=== PATIENT | female | born 1985 | race Caucasian/White ===

== ENCOUNTER 2017-01-16 08:44 | Inpatient (IN) | payer BC, OTHER ==
[~2017-01-16] VITALS: Ht 172.7 cm; Wt 66.2 kg
[2017-01-16 00:30] VITALS: BP 112/77
[2017-01-16 02:55] VITALS: BP 127/70
[2017-01-16] MEDS ORDERED: ACETAMINOPHEN 325 MG TABLET PO PRN (19:00)
[2017-01-16] MEDS ORDERED: LORAZEPAM 2 MG/1 ML VIAL IM PRN (19:00)
[2017-01-16] MEDS ORDERED: ONDANSETRON ODT 4 MG TAB.RAPDIS SL PRN (19:00)
[2017-01-16] MEDS ORDERED: LOPERAMIDE HCL 2 MG CAPSULE PO PRN ×2 (19:00)
[2017-01-16] MEDS ORDERED: MAG HYDROX/AL HYDROX/SIMETH 30 ML LIQUID UDC PO PRN (19:00)
[2017-01-16] MEDS ORDERED: MAGNESIUM HYDROXIDE 30 ML LIQUID UDC PO PRN (19:00)
[2017-01-16] MEDS ORDERED: BUPRENORPHINE HCL 2 MG TAB.SUBL SL PRN (19:00)
[2017-01-16] MEDS ORDERED: ONDANSETRON 4 MG/2 ML VIAL IM PRN (19:00)
[2017-01-16] MEDS ORDERED: LORAZEPAM 1 MG TABLET PO PRN (19:00)
[2017-01-16] MEDS ORDERED: MIRALAX 17 GM POWD.PACK PO PRN (19:00)
[2017-01-16 19:20] VITALS: BP 114/68
--- NOTE | 2017-01-16 19:20 | NUR ---
Pre-Assessment Pre-assessment performed in the intake department of [facility]. Pt is A&O x4 and ambulatory with a steady gait. She appears mildly intoxicated. She is cooperative and answers all questions appropriately but takes a few seconds before answering. Vitals: B/P 114/68, HR 77, RR 18, O2 sat 100%, T 98.0, pain 0/10. She has NKA. Pt reports she has been using heroin IV and Xanax. Assessment to continue on the [facility].
[2017-01-16 19:48] LABS: BASOPHILS % (AUTO) 0.4 % (0.0-2.0); EOSINOPHILS # (AUTO) 0.1 K/uL (0.0-0.7); HEMATOCRIT 40.9 % (37-47); HEMOGLOBIN 13.2 G/DL (12.0-16.0); LYMPHOCYTES # (AUTO) 2.1 K/UL (0.8-4.8); LYMPHOCYTES % (AUTO) 41.6 % (20.5-51.5); MEAN CORPUSCULAR HEMOGLOBIN 28.1 UUG (27.0-31.0); MEAN CORPUSCULAR HGB CONC 32 g/dL (32.0-37.0); MEAN CORPUSCULAR VOLUME 86.8 FL (81.0-99.0); MONOCYTES # (AUTO) 0.3 K/UL (0.1-1.30); MONOCYTES % (AUTO) 5.4 % (0.0-11.0); NEUTROPHILS # (AUTO) 2.6 K/UL (1.8-8.9); NEUTROPHILS % (AUTO) 51.6 % (38.5-71.5); PLATELET COUNT (AUTO) 161 K/UL (150-450); RED BLOOD CELL COUNT(AUTO) 4.71 MIL/UL (4.2-5.4); WHITE BLOOD COUNT (AUTO) 5.1 K/UL (4.0-11.2)
[2017-01-16 19:57] LABS: ALANINE AMINOTRANSFERASE 89 U/L (14-59); ALKALINE PHOSPHATASE 80 U/L (50-136); ASPARTATE AMINOTRANSFERASE 57 U/L (15-37); BILIRUBIN,TOTAL 0.6 mg/dL (0.2-1.0); CARBON DIOXIDE 29 mmol/L (21-32); CHLORIDE 102 mmol/L (98-107); CREATININE 0.7 mg/dL (0.6-1.3); GLUCOSE 76 mg/dL (74-106); MAGNESIUM 1.8 mg/dL (1.8-2.4); POTASSIUM 3.5 mmol/L (3.5-5.1); TOTAL PROTEIN, SERUM 7.4 g/dL (6.4-8.2); UREA NITROGEN, BLOOD 12 mg/dL (7-18)
[2017-01-16 20:00] VITALS: BP 114/68
[2017-01-16 20:07] LABS: THYROID STIMULATING HORMONE 0.188 mIU/mL (0.358-3.740)
[2017-01-16 20:12] LABS: *URINE HCG, QUAL NEGATIVE (NEGATIVE)
[2017-01-16 20:14] LABS: ETHANOL < 3 MG/DL (0-0)
[2017-01-16 20:16] LABS: *AMPHETAMINE, URINE NEGATIVE (NEGATIVE); *BARBITURATE, URINE NEGATIVE (NEGATIVE); *CANNABINOID, URINE POSITIVE (NEGATIVE); *COCCAINE, URINE POSITIVE (NEGATIVE); *OPIATE, URINE POSITIVE (NEGATIVE); *PHENCYCLIDINE SCREEN,URINE NEGATIVE (NEGATIVE)
[2017-01-16] MEDS ORDERED: LORAZEPAM 1 MG TABLET PO SCH (21:00)
--- NOTE | 2017-01-16 21:30 | NUR ---
ADMISSION Pt is a 31 yo female who arrived [facility] the [facility] unit at 1935 on 01/16/17 for medically supervised detox. She is A&O x4 and ambulatory. Body check performed by APPLICATION DEVELOPER MANAGER and skin check performed by nurse. Pt was oriented to the unit and shown to her room. She is A&O x4 and ambulatory with a steady gait. NKA, full code status, and on a regular diet. Vitals signs: 114/68, HR 77, RR 18, O2 sat 100%, T 98.0, pain 0/10. Pt is 5'8" and weighs 146lb. She has a PMH of HPV, genital herpes, anxiety, depression, bipolar, and h/o eating disorder. Lung sounds clear, PERRLA, brisk capillary refills, bowel sounds present, skin is intact. She reports last menstrual period was 2 months ago and it is irregular due to using drugs. Last BM was today. History of Use 1) Xanax 1-3mg per day for the past 9 months. Last used 1mg on 01/16/17 at 1100. She has used Xanax for 14 years. She also admits to occasional Valium use. Last used 10mg this evening on the car ride from [facility] to [facility]. 2) Heroin IV 1 gram per day for the past 4 months. Last used 0.4 grams on 01/16/17 at 1100. She has used heroin for the past 14 years. 3)Cocaine 0.5grams 1x/month. Last used 0.5 grams 01/14/17. She has used cocaine for 9 years. 4)Marijuana 0.5grams 3x/month. Last used 0.5 grams 01/15/17. She has used marijuana for 9 years. Treatment History 1)[facility] 03/2015 for 4.5 months. 2)[facility] 02/2014 for 4.5 months. Pt smokes 1 pack of cigarettes per day. She decided to come to treatment today "to get sober". Her longest period of sobriety was one year from 03/2015 to 03/2016. Symptoms when she doesn't use include "stuffy nose, hot and cold, irritable". Pt does not have a primary care physician at home. COWS 2 and CIWA 2 on admission. Admission orders received. Pt was educated regarding use of the call light and all questions answered. Fall precautions in place. Bed is down with call light in reach.
[2017-01-17] VITALS (8 sets, daily range): BP systolic 105–136; BP diastolic 66–101
--- NOTE | 2017-01-17 01:26 | NUR ---
PRN Subutex Pt reports hot and cold flashes, sweating, skin crawling. She has moist skin, nasal stuffiness, and goose bumps. COWS score 12. PRN Subutex administered.
--- NOTE | 2017-01-17 02:26 | NUR ---
PRN Subutex reassessment Pt reports Subutex only mildly effective. She continues to have hot and cold flashes with moist skin and goose bumps. Nasal stuffiness is relieved. COWS score reduced to 9.
[2017-01-17] MEDS: CLONIDINE HCL 0.1 MG TABLET PO PRN (02:58)
[2017-01-17] MEDS: LORAZEPAM 1 MG TABLET PO PRN ×2 (02:59→05:47)
[2017-01-17] MEDS: METHOCARBAMOL 750 MG TABLET PO PRN ×2 (02:59→21:38)
[2017-01-17] MEDS: DICYCLOMINE HCL 20 MG TABLET PO PRN ×2 (02:59→13:16)
--- NOTE | 2017-01-17 03:00 | NUR ---
PRN Ativan, Clonidine, Robaxin, and Bentyl Pt states "I feel so hot and my stomach is in knots. I'm sweating even more". She is constantly moving in bed and moaning in discomfort. COWS score 14 and CIWA 13. PRN Ativan, Clonidine, Robaxin, and Bentyl administered.
--- NOTE | 2017-01-17 04:00 | NUR ---
PRN Ativan, Clonidine, Robaxin, and Bentyl reassessment PRN Ativan, Clonidine, Robaxin, and Bentyl effective. Pt reports "I feel much better". COWS 4 and CIWA 3.
[2017-01-17] MEDS: IBUPROFEN 600 MG TABLET PO PRN (05:47)
--- NOTE | 2017-01-17 05:51 | NUR ---
PRN Ativan and Motrin Pt woke up and reports chills, sweating, body aches, stomach cramps. She is anxious, irritable, and shifting in bed. COWS 8 and CIWA 7. PRN Ativan and Motrin administered.
[2017-01-17] MEDS ORDERED: GABA-534 PO (06:40)
[2017-01-17] MEDS ORDERED: DIME25TA2 PO (06:40)
[2017-01-17] MEDS ORDERED: LAMO200T PO (06:40)
[2017-01-17] MEDS ORDERED: BUSP30TA2 PO ×2 (06:40→21:31)
[2017-01-17] MEDS ORDERED: VALA500T34 PO (06:40)
[2017-01-17] MEDS ORDERED: LAMO100T PO (06:40)
--- NOTE | 2017-01-17 06:50 | NUR ---
PRN Ativan and Motrin PRN Ativan and Motrin effective. Pt is less anxious, restless, and body aches are relieved. COWS 5 and CIWA 2.
--- NOTE | 2017-01-17 07:25 | NUR ---
END OF SHIFT Pt is a 31 yo female admitted to [facility] 01/16/17 at 1935. She is A&O and ambulatory. She was admitted to BZD and Opiate dependence with a h/o using cocaine and marijuana. PRN Subutex, Clonidine, Robaxin, Bentyl, Motrin, and Ativan x2 administered. She drank 500mL and slept for 5 hours. Last COWS 5 and CIWA 2. Safety measures in place.
--- NOTE | 2017-01-17 07:50 | NUR ---
START OF SHIFT Received report from night nurse. 31 year old female patient admitted on 01/16/17 for opiate and benzo withdrawals. Pt reports history of HPV, genital herpes, depression, anxiety and bipolar. Denies allergies, full code and regular diet. Pt is currently not on a taper and is on PRN medications. Pt received PRN Clonidine, Robaxin, Bentyl, Subutex, Motrin and Ativan x2 for withdrawal symptoms. Pt states medications were effective. COWS were 8 and now 4, CIWA was 7 and now 2. V/S remain WNL. Pt remain safe throughout shift, and is resting in bed at this time. Safety precautions are in place, will continue to monitor.
[2017-01-17] MEDS: MULTIVITAMINS,THERAPEUTIC TABLET PO SCH (08:55)
[2017-01-17] MEDS: LORAZEPAM 1 MG TABLET PO SCH ×4 (08:56→21:38)
[2017-01-17] MEDS: BUPRENORPHINE HCL 2 MG TAB.SUBL SL SCH ×4 (08:56→21:39)
[2017-01-17] MEDS ORDERED: TUBERCULIN,PURIF.PROT.DERIV. 5 TU/0.1 ML TEST ID ONE (09:00)
--- NOTE | 2017-01-17 09:15 | NUR ---
REFUSING TB TEST Pt is refusing PPD test at this time. Education provided. Pt does not present with a cough, lungs are clear at this time. aware.
[2017-01-17] MEDS: GABAPENTIN 300 MG CAPSULE PO SCH ×2 (13:15→17:36)
--- NOTE | 2017-01-17 13:26 | NUR ---
PRN BENTYL Pt c/o 5/10 stomach cramps. PRN Bentyl administered as ordered. Will reassess.
--- NOTE | 2017-01-17 14:30 | NUR ---
REASSESSMENT Pt denies cramps at this time. Medication was effective.
--- NOTE | 2017-01-17 18:53 | NUR ---
END OF SHIFT 31 year old female patient admitted on 01/16/17 for opiate and benzo withdrawals. Pt was started on a 5 day Ativan and 5 day Subutex taper and is tolerating well. Pt reports history of HPV, genital herpes, depression, anxiety and bipolar. Denies allergies, full code and regular diet. Pt received PRN Bentyl and states it was effective. COWS were 7 and CIWA 7. V/S remain WNL with bouts of increased heart rate, no distress noted. Pt remains compliant with therapeutic care plan. Safety precautions are in place, business excellence manager nurse will continue to monitor.
--- NOTE | 2017-01-17 19:50 | NUR ---
START OF SHIFT 315 Received report from day shift nurse. Pt is lying in bed watching TV. She is a 31 yo female admitted to [facility] for opiate and BZD dependence. She is A&O and ambulatory. NKA, full code, regular diet. She has a PMH of HPV, genital herpes, depression, anxiety, and bipolar. On admission she reported using xanax 1-3mg per day, heroin IV 1 gram per day, cocaine, and marijuana. She started 5 day Ativan and Subutex tapers today. Pt reports chills, anxiety, and muscle aches. She is noted with moist skin and nasal stuffiness. Tapers due tonight. Fall precautions in place. Bed is down with call light in reach.
--- NOTE | 2017-01-17 21:39 | NUR ---
PRN Robaxin Pt reports generalized body aches. PRN Robaxin administered.
--- NOTE | 2017-01-17 22:39 | NUR ---
PRN Robaxin reassessment PRN Robaxin effective. Pt reports body aches are relieved.
[2017-01-18] VITALS: BP 119/73
[2017-01-18 04:00] VITALS: BP 106/67
--- NOTE | 2017-01-18 07:15 | NUR ---
END OF SHIFT Report provided to day shift nurse. Pt is lying in bed resting. She is a 31 yo female admitted to [facility] for opiate and BZD dependence. She is A&O. NKA, full code, regular diet. She has a PMH of HPV, genital herpes, depression, anxiety, and bipolar. On admission she reported using xanax 1-3mg per day, heroin IV 1 gram per day, cocaine, and marijuana. 5 day Ativan and Subutex tapers started 01/17/17. PRN Robaxin administered. Pt is cooperative with treatment. Last COWS 4 and CIWA 3. She drank 1000mL and slept for 7 hours. Fall precautions in place. Bed is down with call light in reach.
--- NOTE | 2017-01-18 07:42 | NUR ---
BEGINNING OF SHIFT Patient endorsement report received from night warehouse manager nurse, all pertinent information discussed. Patient is a 31 year old female, NKA. Admitted on 01/16/2017. Admitting Dx: Opiate/BZO dependence. Patient with ongoing 5 day Ativan taper and 5 day Subutex taper as ordered currently with ongoing day 2 of taper. Patient slept for 7 hours as per night warehouse manager. Also with last and ciwa score of: 3, and last cow score of: 4. . During night warehouse manager patient received PRN:Robaxin, medication effective as per night warehouse manager. Received patient alert and oriented x4, Educated regarding plan of care for the day and medication regimen with good verbal understanding. Safety measures in place. call light kept with in reach, fall and seizure precautions observed. Will continue to monitor closely.
[2017-01-18 08:44] VITALS: BP 110/70
[2017-01-18] MEDS: MULTIVITAMINS,THERAPEUTIC TABLET PO SCH (08:45)
[2017-01-18] MEDS: GABAPENTIN 300 MG CAPSULE PO SCH (08:46)
[2017-01-18] MEDS: VALACYCLOVIR 500 MG PO SCH (08:46)
[2017-01-18] MEDS: BUPRENORPHINE HCL 2 MG TAB.SUBL SL SCH ×3 (08:46→20:50)
[2017-01-18] MEDS: LORAZEPAM 1 MG TABLET PO SCH ×3 (08:46→20:49)
[2017-01-18] MEDS: METHOCARBAMOL 750 MG TABLET PO PRN (08:55)
[2017-01-18] MEDS: DICYCLOMINE HCL 20 MG TABLET PO PRN (08:55)
--- NOTE | 2017-01-18 08:55 | NUR ---
PRN BENTYL/ROBAXIN Patient c/o stomach cramps and muscle aches, provided with non pharmacological interventions with no relief, administered Bentyl and Robaxin as ordered, will monitor effectiveness, encouraged patient to increase PO fluid intake as tolerated.
--- NOTE | 2017-01-18 09:55 | NUR ---
BENTYL/ROBAXIN REASSESSMENT Patient reports medication effective, no c/o stomach cramps and no c/o muscle aches, will continue to monitor.
[2017-01-18 11:10] LABS: HEPATITIS B SURFACE AG Negative (Negative)
[2017-01-18 12:58] VITALS: BP 126/90
[2017-01-18] MEDS: GABAPENTIN 400 MG CAPSULE PO SCH ×2 (14:29→20:49)
[2017-01-18 17:19] VITALS: BP 121/88
[2017-01-18] MEDS: busPIRone 10 MG TABLET PO SCH (18:38)
--- NOTE | 2017-01-18 18:59 | NUR ---
END OF SHIFT Patient alert and oriented x4, vital signs stable during shift. Patient compliant with therapeutic plan of care. Admitting Dx: opiate/BZO dependence, Patient continues on 5 day Ativan taper and 5 day Subutex taper as ordered is currently on day 2 of tapers. 0900 assessment patient presented with: heart rate of 87, c/o chills, dilated pupils, mild bone and joint aches, stomach cramps, tremors that can be felt but not seen, irritable, barely sweating and anxiety with cow score of: 8 and ciwa score of: 6; 1300 assessment patient presented with: heart rate of 95, c/o chills, dilated pupils, tremors that can be felt but not seen, irritable, anxiety and barely sweating with cow score of: 6 and ciwa score of: 6. 1700 assessment patient presented with: heart rate of 98, c/o chills, dilated pupils, tremors that can be felt but not seen, irritable, anxiety and barely sweating with cow score of: 6 and ciwa score of: 6. During shift administered PRN: Bentyl and Robaxin as ordered, medications were effective.Patient encouraged to attend group/therapy sessions to learn new coping skills to prevent relapse, denies SI/HI. Patient compliant with plan of care during shift. Safety measures in place. call light kept with in reach. Patient endorsement report given to hourly shift nurse, all pertinent information discussed. safety measures in place. will continue to monitor.
--- NOTE | 2017-01-18 19:10 | NUR ---
Start of Shift Patient Received. Patient is a 31 year old female admitted on 01/16/17 for Benzo and Opiate Dependence under the care of Dr. Webb. Patient is currently receiving a a 5 day Ativan and 5 day Subutex taper. Patient verbalizes no known allergies, wishes to be full code, following a Regular Diet, placed on fall precautions, with skin noted intact. Past medical history noted as HPV, Genital herpes, Depression, Anxiety, and Bipolar. Per endorsement, patient was given PRN Bentyl and Robaxin with medications noted to be effective. Last CIWA noted to be 6 and noted COWS noted to be CIWA 6. All needs attended to promptly. Will continue plan of care as ordered.
[2017-01-18 20:47] VITALS: BP 124/78
[2017-01-18] MEDS: LAMOTRIGINE 200 MG TABLET PO SCH (20:49)
[2017-01-19] VITALS: BP 109/74
[2017-01-19] MEDS: diphenhydrAMINE 50 MG CAPSULE PO PRN ×2 (00:12→22:01)
--- NOTE | 2017-01-19 00:15 | NUR ---
PRN Medication administration Patient verbalizing inability of falling asleep. All non pharmacological interventions noted to be not effective. PRN Benadryl administered as per order. Will continue to monitor.
--- NOTE | 2017-01-19 01:15 | NUR ---
PRN Medication Reassessment Patient is noted in bed sleeping. Breathing even and non labored. No signs of pain or discomfort noted. PRN Benadryl noted to be effective. patient continues to sleep with no interruptions noted. Will continue to monitor.
[2017-01-19 04:30] VITALS: BP 105/71
--- NOTE | 2017-01-19 07:13 | NUR ---
End of Shift Patient is in bed sleeping. Breathing even and non labored. No signs of pain or discomfort noted. Patient is a 31 year old female admitted on 01/16/17 for Benzo and Opiate Dependence. Patient continues on a 5 day Ativan and 5 day Subutex taper. No known allergies, wishes to be full code, following a Regular Diet, placed on fall precautions, with skin noted intact. Past medical history noted as HPV, Genital herpes, Depression, Anxiety, and Bipolar. Patient was given PRN Benadryl with medication noted to be effective. All needs attended to promptly. Will continue plan of care as ordered.
--- NOTE | 2017-01-19 07:25 | NUR ---
Start of Shift Chimney Builder Helper received pt from herb digger nurse. Pt is a 31 year old female admitted on 01/16/17 for Xanax and Heroin medical detoxification. Pt currently on a 5 day Subutex and 5 day Ativan taper ,tolerating well. Pt has NKA, is a full code and on a regular diet. Pt placed on fall and universal precautions. Pt reports a PMH of depression, anxiety, Bipolar, HPV and genital herpes. Skin is intact. Pts last COWS of 6 and CIWA of 6 recorded at 2130. Chimney Builder Helper encounters pt in her room sitting on her bed. Pt is calm and cooperative and able to make her needs known. Flat affect with depressed mood. Bed in low position, wheels locked, side rails x2 and call light within reach. All safety measures in place per hospital policy. Will continue to monitor, support and encourage according to plan of care.
[2017-01-19 08:26] VITALS: BP 120/76
[2017-01-19] MEDS ORDERED: BUPRENORPHINE HCL 2 MG TAB.SUBL SL SCH (09:00)
[2017-01-19] MEDS: LORAZEPAM 1 MG TABLET PO SCH ×4 (09:02→21:03)
[2017-01-19] MEDS: busPIRone 10 MG TABLET PO SCH ×2 (09:02→16:15)
[2017-01-19] MEDS: GABAPENTIN 400 MG CAPSULE PO SCH ×3 (09:02→21:03)
[2017-01-19] MEDS: MULTIVITAMINS,THERAPEUTIC TABLET PO SCH (09:02)
[2017-01-19] MEDS: LAMOTRIGINE 100 MG TABLET PO SCH (09:02)
[2017-01-19] MEDS: VALACYCLOVIR 500 MG PO SCH (09:14)
[2017-01-19 12:30] VITALS: BP 110/74
[2017-01-19] MEDS: METHOCARBAMOL 750 MG TABLET PO PRN (13:11)
--- NOTE | 2017-01-19 13:11 | NUR ---
PRN Administration Pt requests medication for generalized body aches and discomfort. Pt attempted non-pharmacological intereventions with no relief noted. Cement Paver administered Robaxin per MD order and pt tolerated well. Will continue to moniotr, support and encourage according to plan of care.
--- NOTE | 2017-01-19 14:15 | NUR ---
PRN Re-assessment Pt states she feels moderately better, stating, " I feel a bit better, still achy, but tolerable." Will continue to monitor, support and encourage according to plan of care.
--- NOTE | 2017-01-19 15:42 | NUR ---
Therapist prompted client to attend daily group sessions, and client stated that she would make an effort to attend the next group meeting.
[2017-01-19] MEDS: BUPRENORPHINE HCL 2 MG TAB.SUBL SL SCH ×2 (15:54→21:04)
[2017-01-19] MEDS: IBUPROFEN 600 MG TABLET PO PRN (16:15)
--- NOTE | 2017-01-19 16:15 | NUR ---
PRN Administration Pt requests medication for headache 12/01, attempted non-pharmacological interventions with no relief. Matcher Leather Parts administered medication as ordered by MD. Will continue to monitor, support and encourage according to plan of care.
[2017-01-19 16:45] VITALS: BP 112/77
--- NOTE | 2017-01-19 17:15 | NUR ---
PRN Re-assessment Pt states, " I am feeling better, the Motrin helped, thanks." Will continue to monitor, support and encourage according to plan of care.
--- NOTE | 2017-01-19 19:05 | NUR ---
End of Shift Sales Merchandiser provided report to nightclub manager nurse with no further, comments, questions or concerns voiced. . Pt is a 31 year old female admitted on 01/16/17 for Xanax and Heroin medical detoxification. Pt currently on a 5 day Subutex and 5 day Ativan taper ,tolerating well. Pt has NKA, is a full code and on a regular diet. Pt placed on fall and universal precautions. Pt reports a PMH of depression, anxiety, Bipolar, HPV and genital herpes. Skin is intact. Pts last COWS of 4 and CIWA of 5 recorded at 1600. Pt is calm and cooperative and able to make her needs known. Social and attending groups. Flat affect with depressed mood. Pt was administered Robaxin for muscle aches and generalized pain. Also administered Motrin for headache, both reported to be effective.Bed in low position, wheels locked, side rails x2 and call light within reach. All safety measures in place per hospital policy.
--- NOTE | 2017-01-19 19:10 | NUR ---
Start of Shift Patient Received. Patient is in activities room participating in group meeting. Patient is a 31 year old female admitted on 01/16/17 for Benzo and Opiate Dependence under the care of Dr. Webb. Patient continues on a 5 day Ativan and 5 day Subutex taper. No known allergies, wishes to be full code, following a Regular Diet, placed on fall precautions, with skin noted intact. Past medical history reported as Depression, Anxiety, and Bipolar, HPV, Genital herpes. Per endorsement, patient was given PRN Motrin and Robaxin with medications noted to be effective. Last COWS noted 4 and CIWA 5. All needs attended to promptly. Will continue plan of care as ordered.
[2017-01-19 20:11] VITALS: BP 113/79
[2017-01-19] MEDS: LAMOTRIGINE 200 MG TABLET PO SCH (21:03)
--- NOTE | 2017-01-19 22:02 | NUR ---
PRN Medication Administration Patient is verbalizing inability of falling asleep. All non-pharmacological interventions noted not effective. PRN Benadryl administered. Will continue to monitor for effectiveness of medication.
--- NOTE | 2017-01-19 23:17 | NUR ---
PRN Medication Reassessment Patient noted in bed sleeping. Breathing even and non labored. No signs of pain or discomfort noted. Patient was given PRN Benadryl with medication noted to be effective. Patient noted to be sleeping with no interruptions noted. Will continue to monitor.
[2017-01-20] VITALS (7 sets, daily range): BP systolic 108–118; BP diastolic 69–84
--- NOTE | 2017-01-20 07:30 | NUR ---
start of shift note: received pt from shift supervisor melting nurse, pt is in stable condition at this time. pt is [facility] for opiate/benzo withdrawal /dependence. pt's last cows 2 and ciwa 2. will continue to monitor pt for any changes and will monitor pt for any A/R to medication.
[2017-01-20] MEDS: MULTIVITAMINS,THERAPEUTIC TABLET PO SCH (08:19)
[2017-01-20] MEDS: VALACYCLOVIR 500 MG PO SCH (08:19)
[2017-01-20] MEDS: LORAZEPAM 1 MG TABLET PO SCH ×3 (08:19→20:39)
[2017-01-20] MEDS: LAMOTRIGINE 100 MG TABLET PO SCH (08:19)
[2017-01-20] MEDS: busPIRone 10 MG TABLET PO SCH ×2 (08:19→17:06)
[2017-01-20] MEDS: GABAPENTIN 400 MG CAPSULE PO SCH ×3 (08:20→20:40)
[2017-01-20] MEDS: BUPRENORPHINE HCL 2 MG TAB.SUBL SL SCH ×3 (08:20→20:41)
[2017-01-20] MEDS: BACLOFEN 10 MG TABLET PO SCH ×2 (14:31→20:38)
--- NOTE | 2017-01-20 19:01 | NUR ---
END OF SHIFT NOTE: PT IS IN STABLE CONDITION AT THIS TIME, PT IS ADMITTED TO [facility] FOR BENZO/OPIATE WITHDRAWAL/DEPENDENCE. PT PTS LAST COWS 2 AND CIWA 0. PT TOLERATED TAPER WELL. NO A/R TO MEDICATION WILL ENDORSE PT TO FUR POLISHER NURSE.
--- NOTE | 2017-01-20 19:10 | NUR ---
Start of Shift Patient Received. Patient is in activities room participating in group meeting. Patient is a 31 year old female admitted on 01/16/17 for Benzo and Opiate Dependence under the care of Dr. Webb. Patient continues on a 5 day Ativan and 5 day Subutex taper. No known allergies, wishes to be full code, following a Regular Diet, placed on fall precautions, with skin noted intact. Past medical history reported as Depression, Anxiety, and Bipolar, HPV, Genital herpes. Per endorsement, No PRN Medications administered. Last COWS noted 2 and CIWA 1. All needs attended to promptly. Will continue plan of care as ordered.
[2017-01-20] MEDS: LAMOTRIGINE 200 MG TABLET PO SCH (20:39)
[2017-01-20] MEDS: diphenhydrAMINE 50 MG CAPSULE PO PRN (22:21)
--- NOTE | 2017-01-20 22:25 | NUR ---
PRN Medication Administration Patient verbalizing inability of falling asleep. PRN Benadryl administered as per order. Will continue to monitor.
[2017-01-21 00:15] VITALS: BP 118/72
[2017-01-21 04:00] VITALS: BP 112/62
--- NOTE | 2017-01-21 07:07 | NUR ---
End of Shift Patient is in bed sleeping. Breathing even and non labored. No signs of pain or discomfort noted. Patient is a 31 year old female admitted on 01/16/17 for Benzo and Opiate Dependence. Patient continues on a 5 day Ativan and 5 day Subutex taper. No known allergies, wishes to be full code, following a Regular Diet, placed on fall precautions, with skin noted intact. Past medical history noted as HPV, Genital herpes, Depression, Anxiety, and Bipolar. Patient was given PRN Benadryl with medication noted to be effective. Patient slept a total of 6 hours. All needs attended to promptly. Will endorse to continue plan of care as ordered.
--- NOTE | 2017-01-21 07:30 | NUR ---
START OF SHIFT Received endorsement from ongoing nurse, client is in room, she sound asleep, easy to arouse, RR 16, even, non-labored. PRN Benadryl for inability to sleep, she slept 6 hrs. Client is a 31 y/o female admitted on 01/16/17 for opiate and benzodiazepine withdrawals. Client is on Valacyclovir 500mg daily for genital herpes, depression, Buspar 30mg for anxiety and Lamictal 100mg QD for bipolar. NKA, full code and regular diet. Last of 5 day Ativan/Subutex taper, tolerating well. last COWS 3/CIWA 1 @ 1999. Bed in lowest/locked position, side rails x 2 up-padded. Call light within reach. will continue to monitor.
[2017-01-21] MEDS: GABAPENTIN 400 MG CAPSULE PO SCH ×3 (08:51→21:11)
[2017-01-21] MEDS: LORAZEPAM 1 MG TABLET PO SCH ×2 (08:51→21:10)
[2017-01-21] MEDS: BACLOFEN 10 MG TABLET PO SCH ×3 (08:51→21:11)
[2017-01-21] MEDS: MULTIVITAMINS,THERAPEUTIC TABLET PO SCH (08:51)
[2017-01-21] MEDS: LAMOTRIGINE 100 MG TABLET PO SCH (08:51)
[2017-01-21] MEDS: busPIRone 10 MG TABLET PO SCH ×2 (08:52→17:28)
[2017-01-21 08:54] VITALS: BP 117/70
[2017-01-21] MEDS ORDERED: BUPRENORPHINE HCL 2 MG TAB.SUBL SL SCH (09:00)
[2017-01-21] MEDS: VALACYCLOVIR 500 MG PO SCH (09:50)
--- NOTE | 2017-01-21 11:13 | NUR ---
Client refused TB test, Dr. Webb notified, he stated "That is fine, no new orders, thank you." Charge nurse made aware.
[2017-01-21 12:50] VITALS: BP 113/81
[2017-01-21] MEDS: BUPRENORPHINE HCL 2 MG TAB.SUBL SL SCH ×2 (14:46→21:11)
--- NOTE | 2017-01-21 14:48 | NUR ---
Client refused Subutex 2mg taper, risk/benefots discuss, but client still refused medication. notified.
[2017-01-21 16:55] VITALS: BP 118/78
--- NOTE | 2017-01-21 18:57 | NUR ---
END OF SHIFT Client is a 31 year old female admitted for benzodiazepine and heroin withdrawal. Client is in room, a/o x4, she continues to present with depressed mood, flat affect, last CIWA 3/COWS 3. Last of 5 day Ativan/Subutex taper, tolerating well, she refused 1500 dose of Subutex 2 mg, Dr Webb was notified. Client was compliant with group therapy. Seizure precautions. Adequate intake 2091mL, void x 5, stool x 1. Safety measures in place, call light within reach, side rails up x2, bed locked and in low position. Endorsed to incoming nurse.
[2017-01-21 20:00] VITALS: BP 122/83
--- NOTE | 2017-01-21 20:00 | NUR ---
1999 Patient received awake, alert and just returning to her room # [id number] from [facility]. Gait is brisk and steady. Upon seeing nurse, patient smiles widely and states, " Hi, how are you doing?" Patient is oriented to person, place, day, date, time and her personal situation. Patient's color is valladares-pink and her skin is clean, warm, dry and intact. Patient states that she has been eating her regular diet trays with snacks and taking fluids ad rose with no gastric issues. Patient states further that she has been regularly attending all [facility] groups as required and has been following her therapeutic plan as well. Vital signs are: 98.2-82-20 122/83, O2 Sat 100%, COWS 4, CIWA 3. Patient denies any pain or other discomforts at this time and she voices no requests for anything. Patient was admitted on 01/16/17 for: Xanax, Heroin, Cocaine and Marijuana withdrawal and she is currently on a 5-Day Ativan medication taper and a 5-Day Subutex medication taper, both of which she has been apparently tolerating well thus far. Bed is locked and in lowest position, bed rails are up X 1 and call light within patient's easy reach.
[2017-01-21] MEDS: LAMOTRIGINE 200 MG TABLET PO SCH (21:10)
--- NOTE | 2017-01-22 | NUR ---
Patient is downstairs on hospital patio for a cigarette break.
--- NOTE | 2017-01-22 04:00 | NUR ---
Patient refused to be awakened for V/S to be done at this time.
--- NOTE | 2017-01-22 06:30 | NUR ---
0630 Patient slept a total of 5 hours and she had 5 voids and no stools. Total intake was 1,500 ml p.o. No Prn medications given this shift. V/SS afebrile, last COWS 4, last CIWA 3 at 1999. Patient is friendly, cooperative, verbally appropriate and slightly hyperactive when interacting with nurse. Patient is presently sleeping comfortably with eyes closed and respirations quiet, even, unlabored at 12.
--- NOTE | 2017-01-22 07:21 | NUR ---
START OF SHIFT NOTE patient is alert and orientated X 4. She up in bed this morning, respirations are even and unlabored. Vitals WNL thsi morning. Last COWS 4 CIWA 3 and slept 6 hours according to night nurse. NO PRNS given last night. All safety measures in place, call light within reach, bed locked and in lowest position. Will continue to monitor patient.
[2017-01-22 08:21] VITALS: BP 101/72
[2017-01-22] MEDS: BACLOFEN 10 MG TABLET PO SCH ×3 (08:38→21:51)
[2017-01-22] MEDS: busPIRone 10 MG TABLET PO SCH ×2 (08:38→17:07)
[2017-01-22] MEDS: VALACYCLOVIR 500 MG PO SCH (08:38)
[2017-01-22] MEDS: LAMOTRIGINE 100 MG TABLET PO SCH (08:38)
[2017-01-22] MEDS: GABAPENTIN 400 MG CAPSULE PO SCH ×3 (08:38→21:51)
[2017-01-22] MEDS: MULTIVITAMINS,THERAPEUTIC TABLET PO SCH (08:38)
[2017-01-22] MEDS ORDERED: BUPRENORPHINE HCL 2 MG TAB.SUBL SL SCH (09:00)
[2017-01-22] MEDS ORDERED: DICY20TA28 PO (10:03)
[2017-01-22] MEDS ORDERED: GABA-536 PO (10:03)
[2017-01-22] MEDS ORDERED: IBUP-1955 PO (10:03)
[2017-01-22] MEDS ORDERED: BACL10TA PO (10:03)
[2017-01-22] MEDS ORDERED: DIPH50CA37 PO (10:03)
[2017-01-22 12:00] VITALS: BP 123/77
[2017-01-22 16:00] VITALS: BP 116/78
--- NOTE | 2017-01-22 18:46 | NUR ---
END OF SHIFT NOTE Patient is alert and orientated X 4. Vital signs remain stable throughout the day. Patient last COWS 1 CIWA 1. Patient completed her 5 day Ativan and Subutex taper and tolerated well. No PRNs given today. Patient refused TB or chest X-ray and MD aware. Patient was seen by Dr. Webb and is complaint with treatment plan. Patient participated in group activities. Plan is for her to be [facility]. All needs have been met. All safety measures in place. Will continue to monitor patient until endorsed to oncoming night nurse.
[2017-01-22 20:00] VITALS: BP 115/80
--- NOTE | 2017-01-22 20:00 | NUR ---
1999 Patient received awake, alert and returning to her room # [id number] from [facility] group. Gait is brisk and steady. Upon seeing nurse, patient smiles and states, " Hi there!". Patient is oriented to person, place, day, date, time and her personal situation. Patient's color is valladares-pink and her skin is clean, warm, dry and intact. Patient's overall appearance is a healthy one. Patient states that she is being discharged tomorrow to a rehab facility and she [facility], eat her regular diet trays and take fluids ad rose with no gastric issues. Patient denies any pain or other discomforts and she voices no requests for anything at this time. Vital signs are: 97.6-88-16 115/80, O2 Sat 100%, COWS 2 , CIWA 2 . Patient was admitted on 01/16/17 for: Xanax, Heroin, Cocaine and Marijuana withdrawal and she has completed 5-Day Subutex medication taper and 5-Day Ativan medication taper at this time. Patient is friendly, cooperative and verbally appropriate at this time. Bed is locked and in lowest position, bed rails are up X 1 and call light within patient's easy reach.
[2017-01-22] MEDS: LAMOTRIGINE 200 MG TABLET PO SCH (21:50)
[2017-01-22] MEDS: CLONIDINE HCL 0.1 MG TABLET PO PRN (21:58)
[2017-01-22] MEDS: diphenhydrAMINE 50 MG CAPSULE PO PRN (21:58)
--- NOTE | 2017-01-22 21:58 | NUR ---
PRN MEDICATIONS: Prn Benadryl 50 mg p.o. given per request for sleep medication and Prn Catapres 0.1 mg p.o. given per request for c/o anxiety and sweats. Patient states, " I will sleep better tonight if I take it, and the doctor said that he left the clonidine for me tonight".
--- NOTE | 2017-01-22 22:58 | NUR ---
REASSESSMENT PRN MEDICATIONS: Patient is sleeping soundly with eyes closed and respirations quiet, even, unlabored at 12.
--- NOTE | 2017-01-23 | NUR ---
Patient refused to be awakened for V/S to be done at this time.
--- NOTE | 2017-01-23 04:00 | NUR ---
0400 Patient refused to be awakened for V/S to be done at this time.
--- NOTE | 2017-01-23 06:30 | NUR ---
0630 Patient slept a total of 7 hours and she had 3 voids and no stools. Total intake was 1,535 ml p.o. Prn medications given noted separately per floor protocol. V/SS afebrile, last COWS 2, last CIWA 2 at 1999. Patient is presently sleeping comfortably in stable condition, with eyes closed and respirations quiet, even, unlabored at 12.
--- NOTE | 2017-01-23 07:30 | NUR ---
START OF SHIFT Received report from night nurse. 31 year old female admitted on 01/16/17 for benzo, heroin, cocaine and marijuana withdrawals. Pt is A/O x4. Pt has completed 5 day Subutex and 5 day Ativan taper. Pt is medically cleared for d/c. No acute s/s of withdrawals noted throughout night. V/S remain WNL. Most recent COWS are 2 and CIWA 2 at 0400. Pt slept for 7 hours. PRN Clonidine and Benadryl administered and effective. Pt has not yet provided urine for d/c uds. Pt is aware. All needs met at this time, will continue to monitor.
[2017-01-23 08:16] VITALS: BP 118/86
[2017-01-23] MEDS: busPIRone 10 MG TABLET PO SCH (08:19)
[2017-01-23] MEDS: VALACYCLOVIR 500 MG PO SCH (08:19)
[2017-01-23] MEDS: MULTIVITAMINS,THERAPEUTIC TABLET PO SCH (08:19)
[2017-01-23] MEDS: LAMOTRIGINE 100 MG TABLET PO SCH (08:20)
[2017-01-23] MEDS: GABAPENTIN 400 MG CAPSULE PO SCH (08:20)
[2017-01-23] MEDS: BACLOFEN 10 MG TABLET PO SCH (08:20)
--- NOTE | 2017-01-23 10:27 | NUR ---
D/C NOTE Pt is A/O x4. V/S remain WNL. Pt denies SI/HI or hallucinations. Pt shows no s/s of acute withdrawal at this time, and is stable. MD has medically cleared pt for d/c . Education on Hepatitis C, smoking cessation and medication side effects provided. Pt verbalizes understanding. All pt belongings are in belonging bag, including prescriptions, and home medications. Refuses PNU vaccination. Pt is being accompanied by FEED INSPECTION SUPERVISOR at this time to be transported to rehab. All needs met.
[2017-01-23 11:59] LABS: *AMPHETAMINE, URINE NEGATIVE (NEGATIVE); *BARBITURATE, URINE NEGATIVE (NEGATIVE); *CANNABINOID, URINE NEGATIVE (NEGATIVE); *COCCAINE, URINE NEGATIVE (NEGATIVE); *OPIATE, URINE NEGATIVE (NEGATIVE); *PHENCYCLIDINE SCREEN,URINE NEGATIVE (NEGATIVE)
== END 2017-01-23 10:27 | disposition other institution (70) | DRG 895 ==
LOC: SRC 18:46
PROVIDERS: ADMIT Internal Medicine; ATTEND Internal Medicine
PROC: HZ2ZZZZ Detoxification Services for Substance Abuse Treatment (ICD-10-PCS; principal; 2017-01-16)
PROC: HZ41ZZZ Group Counseling for Substance Abuse Treatment, Behavioral (ICD-10-PCS; 2017-01-18)
PROC: HZ31ZZZ Individual Counseling for Substance Abuse Treatment, Behavioral (ICD-10-PCS; 2017-01-19)
DX: F11.23 Opioid dependence with withdrawal (principal); F13.230 Sedative, hypnotic or anxiolytic dependence with withdrawal, uncomplicated; Z81.1 Family history of alcohol abuse and dependence; Z81.4 Family history of other substance abuse and dependence; F41.9 Anxiety disorder, unspecified; F14.10 Cocaine abuse, uncomplicated; F17.210 Nicotine dependence, cigarettes, uncomplicated; A60.00 Herpesviral infection of urogenital system, unspecified; F31.9 Bipolar disorder, unspecified; R74.0 Nonspecific elevation of levels of transaminase and lactic acid dehydrogenase [LDH]; E07.81 Sick-euthyroid syndrome; F12.90 Cannabis use, unspecified, uncomplicated
CPT/HCPCS: 36415; 70030-TC; 80307; 80346; 80349; 80353; 80361; 83735; 84443; 84703; 85025; 86592; 86705; 86803; 87340; 87806; G0480; Q0163

== ENCOUNTER 2018-03-25 17:00 | Inpatient (IN) | payer BC, OTHER ==
[~2018-03-25] VITALS: Ht 172.7 cm; Wt 70.8 kg
[~2018-03-25 17:00] MED LIST: BACL10TA PO; BUSP30TA2 PO; DICY20TA28 PO; DIPH50CA37 PO; GABA-536 PO; IBUP-1955 PO; LAMO100T PO; LAMO200T PO; VALA500T34 PO
[2018-03-25 23:15] VITALS: BP 106/58
--- NOTE | 2018-03-25 23:22 | NUR ---
INTAKE ASSESSMENT BP:106/58, HR: 102, RR:16, SpO2: 100%, T:98 Pt is stable and able to be admitted on the unit. Unit protocols regarding medications and vital signs Q4H were explained. Pt verbalized understanding. Will continue admission upon arrival on the unit.
[2018-03-25] MEDS ORDERED: MAGNESIUM HYDROXIDE 30 ML LIQUID UDC PO PRN (23:30)
[2018-03-25] MEDS ORDERED: LOPERAMIDE HCL 2 MG CAPSULE PO PRN ×2 (23:30)
[2018-03-25] MEDS ORDERED: DIAZEPAM 5 MG TABLET PO PRN (23:30)
[2018-03-25] MEDS ORDERED: BUPRENORPHINE HCL 2 MG TAB.SUBL SL PRN (23:30)
[2018-03-25] MEDS ORDERED: DIAZEPAM 10 MG TABLET PO PRN ×2 (23:30)
[2018-03-25] MEDS ORDERED: MIRALAX 17 GM POWD.PACK PO PRN (23:30)
[2018-03-25] MEDS ORDERED: DICYCLOMINE HCL 20 MG TABLET PO PRN (23:30)
[2018-03-25] MEDS ORDERED: diphenhydrAMINE 50 MG CAPSULE PO PRN (23:30)
[2018-03-25] MEDS ORDERED: MAG HYDROX/AL HYDROX/SIMETH 30 ML LIQUID UDC PO PRN (23:30)
[2018-03-25] MEDS ORDERED: ACETAMINOPHEN 325 MG TABLET PO PRN (23:30)
[2018-03-25] MEDS ORDERED: ONDANSETRON ODT 4 MG TAB.RAPDIS SL PRN (23:30)
[2018-03-25] MEDS ORDERED: LORAZEPAM 2 MG/1 ML VIAL IM PRN (23:30)
[2018-03-25] MEDS ORDERED: ONDANSETRON 4 MG/2 ML VIAL IM PRN (23:30)
[2018-03-25] MEDS ORDERED: DIAZ5TAB4 PO (23:47)
[2018-03-25] MEDS ORDERED: GABA600T2 PO (23:47)
[2018-03-25] MEDS ORDERED: VALA500T34 PO (23:47)
[2018-03-25 23:57] LABS: BASOPHILS % (AUTO) 0.4 % (0.0-2.0); EOSINOPHILS # (AUTO) 0.1 K/uL (0.0-0.7); EOSINOPHILS % (AUTO) 1.4 % (0.0-7.0); HEMOGLOBIN 12.9 g/dL (10.9-14.3); LYMPHOCYTES # (AUTO) 2.3 K/uL (20.0-40.0); LYMPHOCYTES % (AUTO) 49.7 % (20.5-51.5); MEAN CORPUSCULAR HEMOGLOBIN 29.8 uug (24.7-32.8); MEAN CORPUSCULAR HGB CONC 34 g/dL (32.3-35.6); MEAN CORPUSCULAR VOLUME 87.9 fL (75.5-95.3); MONOCYTES # (AUTO) 0.4 K/uL (2.0-10.0); MONOCYTES % (AUTO) 8.1 % (0.0-11.0); NEUTROPHILS # (AUTO) 1.9 K/uL (1.8-8.9); NEUTROPHILS % (AUTO) 40.4 % (38.5-71.5); PLATELET COUNT (AUTO) 183 K/uL (179-408); RED BLOOD CELL COUNT(AUTO) 4.32 MIL/uL (3.63-4.92); WHITE BLOOD COUNT (AUTO) 4.7 K/uL (3.8-11.8)
[2018-03-26] VITALS (7 sets, daily range): BP systolic 97–115; BP diastolic 54–78
--- NOTE | 2018-03-26 00:15 | NUR ---
Admission Note Patient is a 32-year-old, female, arrived to the floor at 2331 to be admitted for medically supervised withdrawal from Opiates (Fentanyl) and Benzodiazepines (Xanax and Valium). Patient also uses Methamphetamine. Patient has history of Heroin, Cocaine and Marijuana use. The patient appears intoxicated and with flushed skin. Patient verbalized, "I'm still feeling it. I don't have any withdrawals." Patient noted to be unkempt, disheveled and with dirty fingernails. Patient is melancholic and at times dozes off while being interviewed and assessed. Also, patient has a hypoactive body movement. Patient is AAOx4, cooperative, with flat affect and is withdrawn. Patient takes time to respond to questions due to intoxication status and observed to be staring at the ceiling for brief periods of time. Patient stated the she currently lives with friends around the [place] [facility] and is employed but will not say her occupation nor the name of her employer. Per patient, her withdrawal symptoms include, "anxiety, agitation, irritability, piloerection, chills, hot flushes, mood swings, generalized muscle pain, nasal congestion, nausea and emotional volatility." Detox/Treatment History --Patient's previous admission at [facility] was from 01/16/2017 to 01/23/2017. After her discharge, she went to [facility] in [place], [place], to continue her recovery. However, she did not finish her stipulated course of stay at the said center (only did 2-3 weeks), with patient citing the of her grandmother as the reason for her "therapeutic discharge" from the treatment center. She immediately relapsed after discharge, stating that the reason for that was because of depression from her grandmother's passing. By the following month in February of 2017, she went to a treatment center in [place], [place] called [facility] where she finished the entire course of 45 days until March. After that, she maintained sobriety for "about 3 months" and relapsed in June of 2017 until December when she checked herself in at [facility] in [place], [place], after experiencing an Opiate Overdose on that same month. Patient said that she only stayed for 9 days at [facility] and AMA'd on 01/14/2018, saying "I didn't like the place. They treated me like shit there. It was better for me to use than stay there." So, starting from 01/14/2018 (after 9 days of being sober), patient relapsed. Substance use--since 01/14/2018 or about 2 months and 1 week, patient has been using the followin) Xanax-started 15 years ago, patient has been using 2-4 mg PO daily for 2 months and 1 week. Per patient, this is not a prescribed medication. She takes this to "calm myself when I feel too wired from Meth." Last use was on 03/25/2018 1900, 3 mg PO. 2) Valium-started 5 years ago, patient verbalized that this was prescribed for her anxiety. Patient said that she takes this substance as perscribed. For the patient 2 months and 1 week, patient 5 mg PO daily. Last use was 03/25/2018 2100, 5 mg PO. 3) Fentanyl-Per patient, she first tried using this substance 10 years ago but did not develop an addiction to it because she was using more of Heroin. When she "could not feel the high" of Heroin, then she switched to using Fentanyl, which was "this year." For the past 2 months and 1 week, patient has been using 0.5 gm via smoke or IV. Last use was 03/25/2018 2030, 0.5 gm IV. 4) Methamphetamine-Patient starting using at age 17 and for the past 2 months and 1 week has been using 1 gm via smoke or IV daily. Last use was 03/25/2018 2030, 1 gm IV. Per patient, her longest period of sobriety was 1 year, from March 2015 to March 2016. She cited many reasons for relapsing. As for her latest relapse (01/14/2018), she said that it was a combination of many factors, including the bad treatment she experienced at [facility] and "a number of family issues." Patient denies any allergies and follows a regular diet. Patient has no Advanced Directive but wants to be Full Code. Patient stated that she currently does not have a Psychiatrist. Her Primary Care Physician is Dr. Alfie Cuevas based in [place], [place]. Patient reports a history of Anxiety (Valium), Depression (stopped using Wellbutrin >1 year), Bipolar Disorder (Lamictal), Herpes (Diagnosed in 2007, taking Valtrex daily), Appendectomy (2004), Eating Disorder and 2 documented Opiate Overdose, the last one was 12/2017, when it prompted her to check in at [facility]. Patient stated her mother is an alcoholic and that she has an uncle that is both an alcoholic and uses "various substances". Patient verbalized that the reason for her being here at [facility] is because, "I feel miserable. I keep on chasing the high but it's not like before. My tolerance is building up and even Fentanyl doesn't do it. I don't want to overdose again." When she is prompted how this admission would be different, she stated: "I feel like I have maxed out. I'm treading toward early . I don't need any of these. I still have a chance." Patient is more hopeful and determined to end the vicious cycle of relapsing and start fresh, with long-term recovery as the ultimate goal. Her core members of her support system are her parents and bestfriend. Patient is determined to finish her detox course at [facility] and is interested in going to an outpatient program, "I am so over my addiction that's making me miserable all the time." Vital signs are taken and as follows: BP: 114/62, HR: 95, RR: 18, SpO2: 98%, Temp: 98.7. Pulse is palpable and regular. Respirations are even and unlabored. Lung sounds clear. Bowel sounds active x4 quadrants. PERRLA, 3mm. Last bowel movement was in the morning of 03/25/2018. Per patient, her bowel movement is mostly every day. No abdominal pain reported. Skin is intact. Height is 5'8" and weighs 156 lbs per standing scale. Patient stated that she smokes about 1 pack of cigarettes daily. Patient reports no Suicidal Ideation nor Homicidal Ideation at the moment nor any history of both. Educated patient about plan of care including detox, group therapy, individual therapy, and discharge planning. Encouraged patient to be open and honest and verbalized support for patient in his recovery. COWS and CIWA assessment deferred due to intoxication status. PRN medications ordered. Will continue to monitor.
[2018-03-26 00:31] LABS: ETHANOL < 3 MG/DL (0-0)
[2018-03-26 00:40] LABS: ALANINE AMINOTRANSFERASE 38 U/L (14-59); ALKALINE PHOSPHATASE 95 U/L (50-136); AMYLASE 56 U/L (25-115); ASPARTATE AMINOTRANSFERASE 24 U/L (15-37); BILIRUBIN,TOTAL 0.4 mg/dL (0.2-1.0); CARBON DIOXIDE 33 mmol/L (21-32); CHLORIDE 105 mmol/L (98-107); CREATININE 0.9 mg/dL (0.6-1.3); GLUCOSE 66 mg/dL (74-106); LIPASE 113 U/L (73-393); MAGNESIUM 1.9 mg/dL (1.8-2.4); POTASSIUM 3.7 mmol/L (3.5-5.1); TOTAL PROTEIN, SERUM 7.3 g/dL (6.4-8.2); UREA NITROGEN, BLOOD 15 mg/dL (7-18)
[2018-03-26 00:48] LABS: THYROID STIMULATING HORMONE 3.046 mIU/mL (0.358-3.740)
[2018-03-26 02:08] LABS: *URINE HCG, QUAL NEGATIVE (NEGATIVE)
[2018-03-26 02:09] LABS: *AMPHETAMINE, URINE POSITIVE (NEGATIVE); *BARBITURATE, URINE NEGATIVE (NEGATIVE); *CANNABINOID, URINE NEGATIVE (NEGATIVE); *COCCAINE, URINE NEGATIVE (NEGATIVE); *OPIATE, URINE NEGATIVE (NEGATIVE); *PHENCYCLIDINE SCREEN,URINE NEGATIVE (NEGATIVE)
--- NOTE | 2018-03-26 04:00 | NUR ---
COWS=6, CIWA=6 Patient noted to have nasal congestion, tremors and increasing anxiety. Patient continues to be withdrawn and in depressed mood. PRN medications offered and refused by patient at this time. Will continue to monitor.
--- NOTE | 2018-03-26 07:00 | NUR ---
Start of Shift Note Pt. is a 32 y/o female newly admitted for the medically managed withdrawal from Benzodiazepines, and opiates. Pt. was also using methamphetamines with her drug use. Pt. is currently on PRN medications to manage her withdrawal symptoms and is awaiting further assessment by MD. During previous shift pt. presented with flushed skin, tremors, nasal congestion, anxiety, and agitation. Last COWS of 6 and CIWA of 6. Received pt. in room. Pt. in bed with eyes closed. No signs of SOB noted. Safety measures in place. Will continue to monitor pt.s behavior for safety.
--- NOTE | 2018-03-26 07:05 | NUR ---
End of Shift Patient continues to appear flushed, with tremors and nasal congestion noted. Patient verbalized that she is starting to feel increasing anxiety and agitation. Patient observed to be sensitive to light and requested for the window to be covered. Patient stated that she may needs medications soon. No c/o pain at this time. Patient continues to be avoidant with conversation and in depressed mood. Fall, universal, seizure and safety prec in place. Call light within reach. Latest COWS=6, CIWA=6, slept for 5 hours Endorsed to AM shift nurse for continuity of care.
--- NOTE | 2018-03-26 08:00 | NUR ---
End of Shift Note Pt. is a 32 y/o female newly admitted for the medically managed withdrawal from Benzodiazepines, and opiates. Pt. was also using methamphetamines with her drug use. Pt. was ordered a 5 day valium taper which began today 03/26/18, and a 4 day Subutex taper which is set to begin tomorrow 03/27/2018. Pt. is still on PRN Subutex until her taper starts. During shift pt. was noted as lethargic, anxious and guarded preferring to stay in her room for the majority of the shift. Pt. able to verbalize needs. PRN Vistaril, Clonidine, Motrin, and Robaxin given during shift to manage withdrawal symptoms. Safety measures in place. Will endorse pt.s care to oncoming shift.
--- NOTE | 2018-03-26 08:00 | NUR ---
COWS/CIWA Assessment COWS of 4 and CIWA of 4. Pt. laying in bed lethargic and reports feeling "sleepy". Pt. presents with anxiety, body aches, anxiety and tremors. Will give medication as ordered. Will continue to monitor pt.'s behavior for safety.
[2018-03-26] MEDS ORDERED: TUBERCULIN,PURIF.PROT.DERIV. 5 TU/0.1 ML TEST ID ONE (09:00)
[2018-03-26] MEDS: CLONIDINE HCL 0.1 MG TABLET PO PRN ×3 (09:49→23:11)
--- NOTE | 2018-03-26 09:49 | NUR ---
PRN Medication Pt. laying on her bed complaining of increased anxiety, and mild body aches. Pt. presents as restless and anxious. PRN Vistaril, Clonidine, and Robaxin given at this time to manage withdrawal symptoms. Will continue to monitor pt.'s behavior for safety and medication effectiveness.
[2018-03-26] MEDS: HYDROXYZINE PAMOATE 25 MG CAPSULE PO PRN ×3 (09:50→23:11)
[2018-03-26] MEDS: MULTIVITAMINS,THERAPEUTIC TABLET PO SCH (09:50)
[2018-03-26] MEDS: METHOCARBAMOL 750 MG TABLET PO PRN ×2 (09:51→21:46)
--- NOTE | 2018-03-26 10:30 | NUR ---
PRN Re-Assessment Pt. in room with eyes closed laying in bed. pt. reports a decreased in anxiety and body aches. Medication effective. Will continue to monitor pt.'s behavior safety.
[2018-03-26] MEDS ORDERED: BUPRENORPHINE HCL 2 MG TAB.SUBL SL PRN (11:30)
[2018-03-26] MEDS ORDERED: 5 DAY TAPER VALIUM-SERENITY PROTOCOL PO PRN (11:30)
--- NOTE | 2018-03-26 12:00 | NUR ---
COWS/CIWA Assessment COWS of 9 and CIWA of 9. Pt. in room laying in bed. Pt. presents with anxiety, body aches, restlessness and tremors. Will give medication as ordered. Will continue to monitor pt.'s behavior for safety.
[2018-03-26] MEDS: DIAZEPAM 10 MG TABLET PO SCH ×3 (13:52→21:45)
--- NOTE | 2018-03-26 14:41 | NUR ---
Therapist attempted to prompt client to attend group therapy, but client was sleepy and not alert. Therapist will attempt to prompt client tomorrow.
--- NOTE | 2018-03-26 16:00 | NUR ---
COWS/CIWA Assessment COWS of 11 and CIWA of 10. Pt. in room laying in bed. Pt. presents with anxiety, body aches, restlessness and tremors. Pt. compliant with medication regiment. Will continue to monitor pt.'s behavior for safety.
[2018-03-26] MEDS: IBUPROFEN 400 MG TABLET PO PRN (16:35)
--- NOTE | 2018-03-26 16:36 | NUR ---
PRN Medication Pt. laying on her bed complaining of increased anxiety, and mild body aches. PRN Vistaril, Clonidine, and Motrin given at this time to manage withdrawal symptoms. Will continue to monitor pt.'s behavior for safety and medication effectiveness.
--- NOTE | 2018-03-26 19:30 | NUR ---
Start of Shift Patient Received. Per endorsement, patient continues on a 4 day Subutex taper. Patient has been noted to be isolative to room and non compliant with group or social activities. No PRN medications administered. Last noted COWS 9. Upon rounds patient is noted in his room, with eyes closed. Breathing even and non labored. Room appears odorous and unkempt. Safety measures in place. Will continue plan of care as ordered. Addendum: 03/27/18 at 0226 by LISA BEVERLY LVN ENTERED IN ERROR: WRONG PATIENT
--- NOTE | 2018-03-26 19:30 | NUR ---
Start of Shift Patient Received. Per endorsement, patient continues on a 5 day Valium and will start of 4 day Subutex taper 03/27/18. PRN Subutex available for increased signs and symptoms of withdrawal. Patient received Vistaril x2, Clonidine x2, Robaxin, and Motrin with all medications noted to be effective. Last noted CIWA 10 and COWS 11. Patient is in her room, in bed with eyes closed. Breathing even and non labored. No signs of pain or discomfort noted. Safety measures in place. Will continue plan of care as ordered.
--- NOTE | 2018-03-26 21:50 | NUR ---
PRN Medication Administration patient is noted verbalizing increased body aches, restlessness, chills, tremulous, sweats, stomach cramps. Patient states "I think im ready to take the Subutex." COWS noted to be 16. She is also noted requesting PRN Robaxin. PRN Subutex and Robaxin administered with routine order of Valium. Will continue to monitor.
--- NOTE | 2018-03-26 22:45 | NUR ---
PRN Medication Administration Patient is noted returning from smoking patio and is able to verbalize "the medication took the edge off but I still natalie feel it. Im just going to try to relax." PRN Subutex and Robaxin noted to be effective. Will continue to monitor. Addendum: 03/27/18 at 0151 by LISA BEVERLY LVN PRN Medication Reassessment
--- NOTE | 2018-03-26 23:15 | NUR ---
PRN Medication Administration Patient is noted in bed and verbalizing increased chills, sweats, anxiety, and irritability. COWS 8 and CIWA 13. Offered PRN Valium and patient verbalizes "the clonidine and Vistaril work better" PRN Vistaril and Clonidine administered. Will continue to monitor.
--- NOTE | 2018-03-27 00:15 | NUR ---
PRN Medication Reassessment Patient is noted in bed with eyes closed. Breathing even and non labored. No signs of restlessness or discomfort noted. PRN Clonidine and Vistaril noted to be effective. CIWA and COWS not able to be completed as per order. Will continue to monitor.
[2018-03-27 00:36] VITALS: BP 108/59
--- NOTE | 2018-03-27 00:45 | NUR ---
COWS and CIWA Patient is noted in bed with eyes closed. Breathing even and non labored. No signs or restlessness or discomfort noted. COWS and CIWA not able to be completed as per order. Vitals Rendered. Will continue to monitor.
--- NOTE | 2018-03-27 04:20 | NUR ---
COWS and CIWA Patient is noted in bed with eyes closed. Breathing even and non labored. No signs of restlessness or discomfort noted. No facial grimacing noted. COWS and CIWA not able to be completed as per order. Vitals Refused. Will continue to monitor.
--- NOTE | 2018-03-27 07:15 | NUR ---
Start of Shift note Pt. is a 32 y/o female admitted for the medically managed with withdrawal from benzodiazepines and opiates. Pt. was also using methamphetamines concurrently with her drug use. Pt. was placed on a 5 day valium and a 4 day Subutex taper to manage withdrawal symptoms. Endorse from previous shift pt. presented with body aches, anxiety and agitation. PRN Vistaril, Clonidine, Robaxin and Motrin given to manage withdrawal symptoms. Received pt. in room. Pt. laying in bed with eyes closed. No signs of distress noted. Safety measures in place. Will continue to monitor pt.s behavior for safety.
--- NOTE | 2018-03-27 07:18 | NUR ---
End of Shift Patient is noted in bed with eyes closed. Breathing even and non labored. Patient continues on a modified 5 day Valium taper and will start a 4 day Subutex taper. Patient received PRN Clonidine, Vistaril, Robaxin and PRN Subutex for elevated COWS score of 16. Patient noted to sleep a total of 6 hours. Last noted COWS 8 and CIWA 13. All needs attended to promptly. Will endorse to continue plan of care as ordered.
--- NOTE | 2018-03-27 07:30 | NUR ---
Start of Shift Pt. is a 32 y/o female admitted for the medically managed withdrawal from benzodiazepines, and opiates. Pt. was also using methamphetamines concurrently with her other drug use. Pt. was placed on a 5 day valium, and a 4 day subutex taper to manage her withdrawal symptoms. Endorse from previous shift pt. presented with anxiety, diaphoresis, agitation, restlessness, lethargy and tremors. Received pt. in room. Pt. presents as disheveled with unkempt hair and flat affect. Educated pt. on treatment plan and medication regiment. Safety measures in place. Will continue to monitor pt.'s behavior for safety.
[2018-03-27 08:00] VITALS: BP 106/66
--- NOTE | 2018-03-27 08:00 | NUR ---
COWS/CIWA Assessment COWS of 10 and CIWA of 11. Pt. laying in bed presenting with anxiety, agitation, restlessness, and tremors. Will give medications as ordered. Will continue to monitor pt.'s behavior for safety.
[2018-03-27 08:06] LABS: HEPATITIS B SURFACE AG Negative (Negative)
[2018-03-27] MEDS: CLONIDINE HCL 0.1 MG TABLET PO PRN ×3 (08:36→21:21)
[2018-03-27] MEDS: METHOCARBAMOL 750 MG TABLET PO PRN ×2 (08:36→15:08)
[2018-03-27] MEDS: HYDROXYZINE PAMOATE 25 MG CAPSULE PO PRN ×3 (08:36→21:21)
[2018-03-27] MEDS: MULTIVITAMINS,THERAPEUTIC TABLET PO SCH (08:36)
[2018-03-27] MEDS: DIAZEPAM 10 MG TABLET PO SCH ×3 (08:36→21:21)
--- NOTE | 2018-03-27 08:36 | NUR ---
PRN Medication Pt. is room complaining of increased anxiety and body aches. PRN Robaxin, Clonidine, and Vistaril given at this time. Will continue to monitor pt.'s behavior for safety and medication effectiveness.
[2018-03-27] MEDS: BUPRENORPHINE HCL 2 MG TAB.SUBL SL SCH ×3 (08:37→21:20)
[2018-03-27] MEDS ORDERED: 4 DAY TAPER BUPRENORPHINE -SERENITY PROTOCOL SL PRN (09:00)
--- NOTE | 2018-03-27 09:00 | NUR ---
PRN Re-Assessment Pt. laying in bed with eyes closed. Respirations unlabored, regular and even. Medication effective. Will continue to monitor pt.'s behavior for safety.
--- NOTE | 2018-03-27 09:53 | NUR ---
Clarification of Medical History Upon admission pt. reported a history of an eating disorder, but did not disclose any specifics. Upon further inquiry pt. reported that she suffered from Bulimia Nervosa but that the last time she compelled herself to vomit after eating was over a year ago. Pt. stated "I don't do that anymore and haven't made myself throw up for for over a year." Safety measures in place. Will continue to monitor pt.'s behavior for safety.
--- NOTE | 2018-03-27 10:25 | NUR ---
Therapist prompted client to attend all group therapy sessions.
--- NOTE | 2018-03-27 11:45 | NUR ---
COWS/CIWA Assessment COWS of 14 and CIWA of 15. Pt. laying in bed presenting with anxiety, agitation, diaphoresis restlessness, and tremors. Pt. states "I feel terrible, my anxiety is through the roof." Per MD order will give Subutex and Valium at this time. Will continue to monitor pt.'s behavior for safety.
[2018-03-27] MEDS: VALACYCLOVIR HCL 500 MG TABLET PO SCH (11:47)
[2018-03-27] MEDS: GABAPENTIN 300 MG CAPSULE PO SCH ×2 (11:48→17:00)
[2018-03-27 12:15] VITALS: BP 112/70
--- NOTE | 2018-03-27 12:30 | NUR ---
ASSUMED CARE Assumed care for patient, all pertinent information was discussed. will continue to monitor.
--- NOTE | 2018-03-27 15:09 | NUR ---
PRN CLONIDINE/VISTARIL/ROBAXIN Patient reported increase in anxiety, agitation, irritability, noted wringing hands and fidgety. Provided with non pharmacological interventions with no relief, administered Clonidine and Vistaril as ordered. Patient also reports myalgia, and muscle spams c/o pain 10/31 administered Robaxin as ordered, will monitor effectiveness of medications.
--- NOTE | 2018-03-27 16:09 | NUR ---
CLONIDINE/VISTARIL/ROBAXIN REASSESSMENT Patient reports feeling less anxious, and less agitated, noted calm, medication effective. Patient also reports decrease in pain, current pain level 2/10, will continue to monitor.
[2018-03-27 16:39] VITALS: BP 112/71
--- NOTE | 2018-03-27 17:00 | NUR ---
COW/CIWA ASSESSMENT Patient noted exhibiting the following s/sx of withdrawal: diaphoresis, arthrlagias, myalgis, runny nose, fine tremors, yawning, increase anxiety, emotional volatitiliyt, increase emotional amplitude, agitation, restlessness, and generalized discomfort, patient with last CIWA score of: 15. Will continue to monitor.
--- NOTE | 2018-03-27 17:01 | NUR ---
PRN TYLENOL Patient reports back pain 5/10, administered Tylenol as ordered, will monitor effectiveness of medication.
--- NOTE | 2018-03-27 18:01 | NUR ---
TYLENOL REASSESSMENT Patient reports medication effective, current back pain level 2/10, will continue to monitor.
--- NOTE | 2018-03-27 19:17 | NUR ---
END OF SHIFT Alert and oriented x4, assumed care for patient at 1230. Continues under close observation. Patient easily agitated, requires frequent calming reassurance. Patient appears disheveled, unkempt, with poor regards to hygiene, encouraged to self groom. Linen change offered and refused. Patient noted self isolative, encouraged patient to attend group therapies/sessions to learn new coping skills to prevent relapse. Patient denies SI/HI. Has flat affect, avoidant eye contact. Noted with anxious mood. Patient noted exhibiting the following s/sx of withdrawal: diaphoresis, arthralgias, myalgia, runny nose, fine tremors, yawning, increase anxiety, emotional volatility, increase emotional amplitude, agitation, restlessness, and generalized discomfort, patient with last CIWA score of: 15. Received PRN: Tylenol, Clonidine, Vistaril and Robaxin upon assuming care for patient, medications were effective, one hour post administration. Safety measures are in place. Fall and seizure precautions observed and in place. Call light with in reach, will continue to monitor closely. Endorsed to third shift lieutenant nurse, all pertinent information was discussed.
[2018-03-27 20:00] VITALS: BP 107/71
--- NOTE | 2018-03-27 20:00 | NUR ---
COWS/CIWA Assessment COWS of 14 and CIWA of 15. Pt. laying in bed and presenting with a diaphoretic brow, anxiety, irritability, restlessness, body aches and tremors. Will give medications as ordered. Will continue to monitor pt.'s behavior for safety.
--- NOTE | 2018-03-27 21:20 | NUR ---
PRN Medication Pt. in room complaining of increased anxiety, and body aches. PRN Vistaril, Clonidine, and Motrin given at this time to manage withdrawal symptoms. Will continue to monitor pt.'s behavior for safety and medication effectiveness.
[2018-03-27] MEDS: IBUPROFEN 400 MG TABLET PO PRN (21:21)
--- NOTE | 2018-03-27 22:00 | NUR ---
PRN Re-Assessment Pt. laying in bed with eyes closed. No signs of SOB noted. Medication effective. Will continue to monitor pt.'s behavior for safety.
--- NOTE | 2018-03-28 | NUR ---
COWS/CIWA Assessment Assessment deferred. Pt. laying in bed with eyes closed. No signs of SOB noted. Will continue to monitor pt.'s behavior for safety.
--- NOTE | 2018-03-28 04:00 | NUR ---
COWS/CIWA Assessment Assessment Deferred. Pt. in bed with eyes closed. No sign of SOB noted. Will continue to monitor pt. for safety.
--- NOTE | 2018-03-28 07:06 | NUR ---
End of Shift Pt is a 32 year old female admitted for benzodiazepines and opiate withdrawal, placed on 5 day Valium and 5 day Subutex taper. During shift, scheduled medications administered along with Clonidine 0.1mg PRN, Vistaril 25mg PRN and Motrin. Latest COWS 14 and CIWA 15. Pt slept for 7 hours, intake of 500mls PO, and voids x2. Safety measures in place, will continue to monitor.
--- NOTE | 2018-03-28 07:17 | NUR ---
BEGINNING OF SHIFT Patient endorsement report received from awake overnight monitor nurse, all pertinent information was discussed. Patient with admitting dx: bzo/opiate withdrawal and substance use of: methamphetamine. Patient continues with ongoing 5 day Valium taper, and 4 day Subutex taper as ordered. As per awake overnight monitor patient with last CIWA score of: 15, and last COW score of: 14. Received PRN: Clonidine, Vistaril and Motrin per awake overnight monitor medications were effective. safety measures are in place. call light with in reach, will continue to monitor closely.
[2018-03-28 08:40] VITALS: BP 117/79
[2018-03-28] MEDS: DIAZEPAM 5 MG TABLET PO SCH ×4 (08:42→20:08)
[2018-03-28] MEDS: GABAPENTIN 300 MG CAPSULE PO SCH ×3 (08:42→16:35)
[2018-03-28] MEDS: MULTIVITAMINS,THERAPEUTIC TABLET PO SCH (08:42)
[2018-03-28] MEDS: VALACYCLOVIR HCL 500 MG TABLET PO SCH (08:42)
[2018-03-28] MEDS: METHOCARBAMOL 750 MG TABLET PO PRN ×2 (08:45→20:19)
--- NOTE | 2018-03-28 08:45 | NUR ---
PRN CLONIDINE/ROBAXIN Patient reported increase in anxiety, agitation, irritability, and fidgety. Provided with non pharmacological interventions with no relief, administered Clonidine as ordered. Patient also reports myalgia, and muscle spams c/o pain 12/31 administered Robaxin as ordered, will monitor effectiveness of medications.
[2018-03-28] MEDS: CLONIDINE HCL 0.1 MG TABLET PO PRN ×2 (08:47→20:08)
[2018-03-28] MEDS ORDERED: BUPRENORPHINE HCL 2 MG TAB.SUBL SL SCH (09:00)
--- NOTE | 2018-03-28 09:00 | NUR ---
CIWA/COW ASSESSMENT Patient noted exhibiting the following s/sx of withdrawal: diaphoresis, arthralgias, myalgia, elevated heart rate, tremors, increase anxiety, emotional volatility, increase emotional amplitude, agitation, restlessness, and generalized discomfort, patient with CIWA score of:15, COW score of: 13. Will continue to monitor.
--- NOTE | 2018-03-28 09:45 | NUR ---
CLONIDINE/ROBAXIN REASSESSMENT Patient reports decrease in anxiety, and agitation. patient also reports decrease in pain, current pain level 4/10, will continue to monitor.
[2018-03-28 12:53] VITALS: BP 101/60
--- NOTE | 2018-03-28 13:00 | NUR ---
CIWA/COW ASSESSMENT Patient noted exhibiting the following s/sx of withdrawal: diaphoresis, arthralgias, myalgia, elevated heart rate, tremors, increase anxiety, emotional volatility, increase emotional amplitude, agitation, restlessness, and generalized discomfort, patient with CIWA score of:14, COW score of: 12.
[2018-03-28] MEDS: BUPRENORPHINE HCL 2 MG TAB.SUBL SL SCH ×2 (15:12→20:09)
[2018-03-28 17:24] VITALS: BP 122/75
--- NOTE | 2018-03-28 17:35 | NUR ---
CIWA/COW ASSESSMENT Patient noted exhibiting the following s/sx of withdrawal: diaphoresis, arthralgias, myalgia, elevated heart rate, tremors, increase anxiety, emotional volatility, increase emotional amplitude, agitation, restlessness, and generalized discomfort, patient with CIWA score of:14, COW score of: 12. Safety measures in place.
--- NOTE | 2018-03-28 19:01 | NUR ---
END OF SHIFT Patient noted exhibiting the following s/sx of withdrawal: diaphoresis, arthralgias, myalgia, elevated heart rate, tremors, increase anxiety, emotional volatility, increase emotional amplitude, agitation, restlessness, and generalized discomfort, patient with last CIWA score of:14, COW score of: 12, Continues under close observation, continues with ongoing Subutex and Valium taper as ordered, detox medication effective at reducing withdrawal symptoms. Noted Alert and oriented x4, during shift. Patient easily agitated, requires frequent calming reassurance. Patient appears disheveled, unkempt, and odorous with poor regards to hygiene, encouraged to self groom, and maintenance of personal space. Patient noted isolative, encouraged patient to attend group therapies/sessions to learn new coping skills to prevent relapse. Patient denies SI/HI. Has flat affect, and poor eye contact. Noted with anxious/irritable mood. Received PRN: Clonidine and Robaxin, medications were effective, one hour post administration. Safety measures are in place. Fall and seizure precautions observed and in place. Call light with in reach, will continue to monitor closely. Endorsed to night stocker nurse, all pertinent information was discussed.
--- NOTE | 2018-03-28 19:53 | NUR ---
START OF SHIFT NOTE Rcvd report from outgoing nurse. Pt is a 32 y/o female A/O to person, place, time, and purpose. Pt was admitted for medically supervised withdrawal from Benzodiazepines and Opiates. Pt is on day 3 of a 5 day Valium and day 2 of a 4 day Subutex taper. Pt has been presenting w/ anxiety, restlessness, sweats chills, headaches, body aches, depressed and withdrawn mood, and flat affect. PRN Clonidine was given and noted effective by outgoing nurse. Last CIWA 14 and COWS 12 @ 1600. Call light is within reach. Pt will continue to be monitored and needs met.
[2018-03-28 20:03] VITALS: BP 109/75
--- NOTE | 2018-03-28 20:05 | NUR ---
CIWA AND COWS ASSESSMENT CIWA 16 and COWS 13. Pt has been presenting w/ anxiety, restlessness, sweats chills, headaches, body aches, depressed and withdrawn mood, and flat affect. V/S: T:97.9, P:104, RR:16, SPO2:100, BP:109/75.
--- NOTE | 2018-03-28 20:08 | NUR ---
PRN CLONIDIINE ADMINISTRATION Clonidine 0.1mg given for anxiety and sweats. CIWA 16. Will reassess pt in 1 hr.
[2018-03-28] MEDS: HYDROXYZINE PAMOATE 25 MG CAPSULE PO PRN (20:19)
--- NOTE | 2018-03-28 20:19 | NUR ---
PRN ROBAXIN AND VISTARIL ADMINISTRATION Vistaril 50mg and Robaxin 750mg given for body aches. Will reassess pt in 1 hr.
--- NOTE | 2018-03-28 21:19 | NUR ---
PRN CLONIDINE, VISTARIL, AND ROBAXIN REASSESSMENT Pt is in bed w/ her eyes closed. Pt's respirations are unlabored and even. Will continue to monitor pt.
--- NOTE | 2018-03-29 00:05 | NUR ---
CIWA AND COWS DEFERRED. V/S REFUSED Pt is in bed w/ her eyes closed. Pt's respirations are unlabored and even.
--- NOTE | 2018-03-29 03:30 | NUR ---
CIWA AND COWS ASSESSMENT CIWA 14 and COWS 12. Pt has been presenting w/ anxiety, restlessness, sweats chills, headaches, body aches, depressed and withdrawn mood, and flat affect. Educated pt on relaxation techniques. Pt just back from smoking and stated that didn't even calm her down. Will assess for pharmacological methods.
[2018-03-29] MEDS: HYDROXYZINE PAMOATE 25 MG CAPSULE PO PRN ×2 (03:35→20:49)
[2018-03-29] MEDS: CLONIDINE HCL 0.1 MG TABLET PO PRN ×2 (03:36→20:50)
--- NOTE | 2018-03-29 03:36 | NUR ---
PRN CLONIDINE AND VISTARIL ADMINISTRATION Clonidine 0.1mg and Vistaril 50mg given for anxiety, agitation, and sweats. CIWA 14 and COWS 12. WIll reassess pt in 1 hr.
--- NOTE | 2018-03-29 04:23 | NUR ---
CIWA AND COWS DEFERRED. V/S REFUSED Pt is in bed w/ her eyes closed. Pt's respirations are unlabored and even.
--- NOTE | 2018-03-29 04:36 | NUR ---
PRN CLONIDINE AND VISTARIL REASSESSMENT Pt is in bed w/ her eyes closed. Pt's respirations are unlabored and even.
--- NOTE | 2018-03-29 07:17 | NUR ---
END OF SHIFT NOTE Endorsed pt to oncoming nurse. Pt is a 32 y/o female A/O to person, place, time, and purpose. Pt was admitted for medically supervised withdrawal from Benzodiazepines and Opiates. Pt completed day 3 of a 5 day Valium and day 2 of a 4 day Subutex taper. Pt continues presenting w/ anxiety, restlessness, sweats chills, headaches, body aches, depressed and withdrawn mood, and flat affect. Pt denies any S/I or H/I. PRN Clonidine x2, Vistaril x2, and Robaxin were given and noted effective. Pts fluid intkake was 1180ml and she slept for 7hrs. Last CIWA 14 and COWS 12 @ 0400. Call light is within reach.
--- NOTE | 2018-03-29 07:52 | NUR ---
BEGINNING OF SHIFT Patient received in bed with eyes closed respirations even and unlabored, responsive to verbal stimuli, as per endorsement report received from evening or night nurse supervisor nurse, all pertinent information was discussed. As per evening or night nurse supervisor patient with last CIWA score of: 14, and last COW score of: 12. Received PRN: Clonidine x2, Vistaril x2, and Robaxin per evening or night nurse supervisor medications were effective. Patient continues with ongoing 5 day Valium taper, and 4 day Subutex taper as ordered. safety measures are in place. call light with in reach, will continue to monitor closely.
[2018-03-29 08:19] VITALS: BP 106/63
[2018-03-29] MEDS: GABAPENTIN 300 MG CAPSULE PO SCH ×3 (08:28→17:13)
[2018-03-29] MEDS: VALACYCLOVIR HCL 500 MG TABLET PO SCH (08:28)
[2018-03-29] MEDS: MULTIVITAMINS,THERAPEUTIC TABLET PO SCH (08:28)
[2018-03-29] MEDS: DIAZEPAM 5 MG TABLET PO SCH ×3 (08:28→20:41)
[2018-03-29] MEDS: BUPRENORPHINE HCL 2 MG TAB.SUBL SL SCH ×3 (08:28→20:41)
[2018-03-29] MEDS: METHOCARBAMOL 750 MG TABLET PO PRN (08:29)
--- NOTE | 2018-03-29 08:29 | NUR ---
PRN ROBAXIN Patient c/o muscle aches, Administered robaxin as ordered, will monitor effectiveness of medication.
--- NOTE | 2018-03-29 08:55 | NUR ---
COW/CIWA ASSESSMENT Has following s/sx of withdrawal during shift: flushed, c/o chills, arthralgias, myalgia, elevated heart rate, tremors, increase anxiety, emotional volatility, increase emotional amplitude, agitation, restlessness, and generalized discomfort, patient with current CIWA score of:12, COW score of: 13. Continues on subutex and valium taper as ordered.
--- NOTE | 2018-03-29 09:29 | NUR ---
ROBAXIN REASSESSMENT Medication effective, decrease in muscle aches, current pain level 2/10, will continue to monitor.
[2018-03-29] MEDS: ARIPIPRAZOLE 5 MG TABLET PO SCH (12:06)
--- NOTE | 2018-03-29 12:45 | NUR ---
COW/CIWA ASSESSMENT noted presenting with the following s/sx of withdrawal during shift: flushed, c/o chills, arthralgias, myalgia, elevated heart rate, tremors, increase anxiety, emotional volatility, increase emotional amplitude, agitation, restlessness, and generalized discomfort, patient with current CIWA score of:12, COW score of: 13. Safety measures in place.
[2018-03-29 13:05] VITALS: BP 112/71
[2018-03-29] MEDS: BACLOFEN 20 MG TABLET PO PRN ×2 (14:45→20:50)
--- NOTE | 2018-03-29 14:45 | NUR ---
PRN BACLOFEN Patient c/o muscle aches 12/31/spasm Administered Baclofen as ordered, will monitor effectiveness of medication.
--- NOTE | 2018-03-29 15:45 | NUR ---
BACLOFEN REASSESSMENT Patient reports medication effective, current pain level 2/10, decrease in muscle spams will continue to monitor.
--- NOTE | 2018-03-29 16:54 | NUR ---
COW/CIWA ASSESSMENT Patient noted exhibiting the following s/sx of withdrawal during shift: flushed, c/o chills, arthralgias, myalgia, elevated heart rate, tremors, increase anxiety, emotional volatility, increase emotional amplitude, agitation, restlessness, and generalized discomfort, patient with current CIWA score of:12, COW score of: 13. Will continue to monitor.
[2018-03-29 17:06] VITALS: BP 119/79
--- NOTE | 2018-03-29 19:00 | NUR ---
END OF SHIFT Alert and oriented x4, continues under close observation, noted presenting with the following s/sx of withdrawal during shift: flushed, c/o chills, arthralgias, myalgia, elevated heart rate, tremors, increase anxiety, emotional volatility, increase emotional amplitude, agitation, restlessness, and generalized discomfort, patient with last CIWA score of:12, COW score of: 13, Continues under close observation, continues with ongoing Subutex and Valium taper as ordered, detox medication effective at reducing withdrawal symptoms. Patient appears disheveled, and with uncombed hair.Encouraged to self groom, and maintenance of personal space. Patient noted isolative and melancholic, encouraged patient to attend group therapies/sessions to learn new coping skills to prevent relapse. Patient denies SI/HI. Has flat affect, and poor eye contact. Noted with anxious/irritable mood. Received PRN: Baclofen and Robaxin, medications were effective, one hour post administration. Safety measures are in place. Fall and seizure precautions observed and in place. Call light with in reach, will continue to monitor closely. Endorsed to slot shift manager nurse, all pertinent information was discussed.
--- NOTE | 2018-03-29 19:46 | NUR ---
START OF SHIFT NOTE Rcvd report from outgoing nurse. Pt is a 32y/o female A/O to person, place, time, and purpose. Pt was admitted for medically supervised withdrawal from Benzodiazepines and Opiates. Pt is on day 4 of a 5 day Valium and day 3 of a 4 day Subutex taper. Pt has been presenting w/ restlessness, body aches, headaches, sweats, chills, hot flashes, tremors, anxiety, depressed and withdrawn mood, and a flat affect. PRN Robaxin and Baclofen were given and noted effective by outgoing nurse. Last CIWA 12 and COWS 13 @ 1600. Call light is within reach. Pt will continue to be monitored and needs met.
[2018-03-29 20:08] VITALS: BP 117/90
--- NOTE | 2018-03-29 20:08 | NUR ---
CIWA AND COWS ASSESSMENT CIWA 12 and COWS 11. Pt has been presenting w/ restlessness, body aches, headaches, sweats, chills, hot flashes, tremors, anxiety, depressed and withdrawn mood, and a flat affect. V/S: T:98.2, P:68, RR:20, SPO2:97, BP:117/90.
--- NOTE | 2018-03-29 20:50 | NUR ---
PRN CLONIDINE, VISTARIL, AND BACLOFEN Clonidine 0.1mg for anxiety and sweats, Vistaril 50mg for anxiety, and Baclofen 50mg for muscle spasms in her legs. Will reassess pt in 1 hr.
--- NOTE | 2018-03-29 21:50 | NUR ---
PRN CLONIDINE, VISTARIL, AND BACLOFEN REASSESSMENT Pt is resting comfortably in bed. Pt states the level of anxiety, restlessness, and spasms has decreased. Will continue to monitor pt.
--- NOTE | 2018-03-30 | NUR ---
CIWA/COWS CIWA score-10, COWS-10, pt c/o having chills, difficulty sitting still, body aches, stomach cramps, bilateral hand tremors and anxiety. Will cont to monitor. Addendum: 03/30/18 at 2314 by ROSE GUERRA RN ERROR IN CHARTING WRONG DATE AND TIME.
--- NOTE | 2018-03-30 00:05 | NUR ---
CIWA AND COWS DEFERRED. V/S REFUSED Pt is in bed w/ his eyes closed. Pt's respirations are unlabored and even.
--- NOTE | 2018-03-30 04:07 | NUR ---
CIWA AND COWS DEFERRED. V/S REFUSED Pt is in bed w/ her eyes closed. Pt's respirations are unlabored and even.
--- NOTE | 2018-03-30 07:07 | NUR ---
END OF SHIFT NOTE Endorsed pt to oncoming nurse. Pt is a 32y/o female A/O to person, place, time, and purpose. Pt was admitted for medically supervised withdrawal from Benzodiazepines and Opiates. Pt completed day 4 of a 5 day Valium and day 3 of a 4 day Subutex taper. Ptcontinues presenting w/ restlessness, body aches, headaches, sweats, chills, hot flashes, tremors, anxiety, depressed and withdrawn mood, and a flat affect. Pt denies any S/I or H/I. PRN Clonidine 0.1mg, Vistaril 50mg, and Baclofen 20mg given for anxiety, agitation, sweats, and muscle spasms and were noted effectiv. Pts fluid intake was 1410ml and she slept for 9hrs. Last CIWA 12 and COWS 13 @ 1999. Call light is within reach.
--- NOTE | 2018-03-30 07:30 | NUR ---
START OF SHIFT NOTE Received report from night nurse, patient is 33 year old female admitted for Opioids and Benzo withdrawal and continues with Subutex and Valium taper tolerating well. Per endorsement patient received PRN Clonidine/Baclofen and Vistaril effective per night nurse, slept for 9 hours and last CIWA score was 12, COWS-11. Received patient alert awake oriented x4 with flat facial expression, worried, anxious, agitated, bilateral hand tremors, muscle spasms. Patient is due for scheduled medications. All safety measures in place, Call light within reach. Will cont to monitor.
[2018-03-30 08:00] VITALS: BP 120/76
[2018-03-30] MEDS: GABAPENTIN 300 MG CAPSULE PO SCH ×3 (08:27→16:13)
[2018-03-30] MEDS: DIAZEPAM 5 MG TABLET PO SCH ×2 (08:27→21:40)
[2018-03-30] MEDS: ARIPIPRAZOLE 5 MG TABLET PO SCH (08:27)
[2018-03-30] MEDS: MULTIVITAMINS,THERAPEUTIC TABLET PO SCH (08:27)
--- NOTE | 2018-03-30 08:27 | NUR ---
CIWA/COWS ASSESSMENT CIWA score-11, COWS-10, patient presented with increased pulse rate, flushed face, difficulty sitting still,muscle spasms, runny nose, stomach cramps, light headed, bilateral hand tremors, anxiety, agitation, sweats. patient was given her scheduled medications. Will cont to monitor. Addendum: 03/30/18 at 1135 by DANIEL SLAUGHTER [facility]- CIWA score was 13, and COWS score was 11.
[2018-03-30] MEDS: VALACYCLOVIR HCL 500 MG TABLET PO SCH (08:28)
[2018-03-30] MEDS ORDERED: BUPRENORPHINE HCL 2 MG TAB.SUBL SL SCH ×2 (09:00→17:00)
[2018-03-30] MEDS: BACLOFEN 20 MG TABLET PO PRN ×3 (09:41→21:40)
--- NOTE | 2018-03-30 09:41 | NUR ---
PRN BACLOFEN Patient c/o muscle spasms 5/10, patient provided with non pharmacological interventions with no relief. PRN Baclofen 20mg PO given as ordered. Will cont to monitor and reassess.
--- NOTE | 2018-03-30 10:41 | NUR ---
PRN REASSESSMENT Per patient Baclofen was effective muscle spasms lower to 2/10.
--- NOTE | 2018-03-30 12:00 | NUR ---
CIWA/COWS ASSESSMENT CIWA score-12, COWS-10, patient presented with flat facial expression, anhedonia, chills, increased pulse rate, difficulty sitting still, body aches, runny nose, stomach cramps, light headed, bilateral hand tremors, anxiety, agitation, sweats. Will cont to monitor.
[2018-03-30] MEDS: IBUPROFEN 400 MG TABLET PO PRN (12:05)
--- NOTE | 2018-03-30 12:05 | NUR ---
PRN MOTRIN Patient c/o headache 10/31. Patient was given PRN Motrin 400mg PO as ordered. Will cont to monitor and reassess.
[2018-03-30 12:32] VITALS: BP 120/81
--- NOTE | 2018-03-30 13:05 | NUR ---
MOTRIN REASSESSMENT Per patient Motrin was effective headache decreased to 2/10.
[2018-03-30] MEDS ORDERED: [UNRECOGNIZED DRUG - OTHER] SL PRN (14:15)
[2018-03-30] MEDS: CLONIDINE HCL 0.1 MG TABLET PO PRN ×2 (14:33→21:41)
--- NOTE | 2018-03-30 14:33 | NUR ---
PRN MEDICATIONS Patient c/o anxiety, agitation, diaphoresis, nausea. Patient was given PRN Zofran 4mg SL, Clonidine 0.1mg PO given as ordered. Will cont to monitor.
--- NOTE | 2018-03-30 15:03 | NUR ---
ZOFRAN REASSESSMENT Per patient Zofran was effective nausea improved.
--- NOTE | 2018-03-30 15:33 | NUR ---
CLONIDINE REASSESSMENT Per patient Clonidine was effective anxiety, agitation and diaphoresis lower.
--- NOTE | 2018-03-30 16:13 | NUR ---
PRN BACLOFEN patient is c/o muscle spasms 5/10, PRN Baclofen 20mg PO administered as ordered. Will cont to monitor and reassess.
[2018-03-30 16:42] VITALS: BP 125/74
--- NOTE | 2018-03-30 17:13 | NUR ---
BACLOFEN REASSESSMENT Per patient Baclofen was effective muscle spasms lower to 2/10.
--- NOTE | 2018-03-30 17:38 | NUR ---
CIWA/COWS ASSESSMENT CIWA score-12, COWS-12, patient presented with sad facial expression, anhedonia, chills, difficulty sitting still, body aches, runny nose, light headed, bilateral hand tremors, anxiety, agitation, sweats. patient was given her scheduled medications.
--- NOTE | 2018-03-30 19:09 | NUR ---
END OF SHIFT NOTE Gave report to night nurse, 33 year old female admitted for Benzo/ Opioids withdrawal. Patient continues with her Valium and Subutex taper tolerating well. Patient presented with flat facial expression, anxiety, agitation, restless, light headed, diaphoresis, bilateral hand tremors, Body aches, muscle spasms, headache, nausea. Patient was given scheduled medications along with PRN Baclofen x2, Motrin, Clonidine, Zofran noted to be effective. Patient denies any SI/HI. Vital signs WNL. Encourage PO fluids as tolerated. Last CIWA score was- 12 and COWS-12. All safety measures in place, call light within reach. Patient endorse to night nurse in stable condition.
--- NOTE | 2018-03-30 19:30 | NUR ---
START OF SHIFT Pt is a 33 y/o female admitted for Benzo/ Opioids withdrawal; continues with her Valium and Subutex taper as ordered and is tolerating well. Pt was given PRN Baclofen x2, Motrin, Clonidine, Zofran per day shift report and was noted to be effective. Pt received in room,stated "I had a terrible day but I am feeling much better now after I took Subutex". Pt appears dishevelled and unkempt,c/o generalized aches,pain and anxiety.PO fluids encouraged as tolerated. Last CIWA score was- 12 and COWS-12. All safety measures in place, call light within reach. Will continue to monitor.
[2018-03-30 20:00] VITALS: BP 114/81
--- NOTE | 2018-03-30 20:00 | NUR ---
CIWA/COWS CIWA score-10, COWS-10, pt c/o having chills, difficulty sitting still, body aches, stomach cramps, bilateral hand tremors and anxiety. Will cont to monitor.
[2018-03-30] MEDS: HYDROXYZINE PAMOATE 25 MG CAPSULE PO PRN (21:40)
--- NOTE | 2018-03-30 21:41 | NUR ---
PRN MEDS PRN Clonidine,Vistaril and Baclofen given as ordered for c/o diaphoresis,anxiety and muscle spasms respectively; will monitor for effectiveness.
--- NOTE | 2018-03-30 22:41 | NUR ---
PRN REASSESSMENT PRN meds are helpful in relieving symptoms; pt is calm and resting in bed with eyes closed; no s/s of distress noted; will continue monitoring.
--- NOTE | 2018-03-31 | NUR ---
CIWA AND COWS DEFERRED. V/S REFUSED Pt is resting in bed with her eyes closed. Pt's respirations are nonlabored and even,no s/s of distress noted.Will continue to monitor.
--- NOTE | 2018-03-31 06:40 | NUR ---
END OF SHIFT Pt is a 33 y/o female admitted for Benzo/ Opioids withdrawal; continues with her Valium and Subutex taper as ordered and is tolerating well. Pt was given PRN Baclofen , Clonidine, and Vistaril during the night and was effective.PO fluids encouraged as tolerated. Last CIWA score was 10 and COWS 10.Pt slept 9 hrs,fluid intake was 1105 ml,voided x 3 . All safety measures in place, call light within reach. Will continue to monitor.
--- NOTE | 2018-03-31 07:56 | NUR ---
START OF SHIFT NOTE Received report from night nurse, 33 year old female admitted for Benzo and Opioids withdrawal and continues with Valium and Subutex taper tolerating well. Per endorsement patient received PRN Baclofen, Clonidine, Vistaril effective per night nurse, last CIWA-10, COWS-10, slept for 9 hours. Received patient alert awake oriented x4 presented with anxiety, agitation, restless, sad facial expression, fatigue. Patient is due for schedule mediations. All safety measures in place. Will cont with plan of care.
[2018-03-31 08:00] VITALS: BP 102/65
[2018-03-31] MEDS: VALACYCLOVIR HCL 500 MG TABLET PO SCH (08:37)
[2018-03-31] MEDS: GABAPENTIN 300 MG CAPSULE PO SCH ×3 (08:38→16:30)
[2018-03-31] MEDS: ARIPIPRAZOLE 5 MG TABLET PO SCH (08:38)
[2018-03-31] MEDS: MULTIVITAMINS,THERAPEUTIC TABLET PO SCH (08:38)
--- NOTE | 2018-03-31 08:38 | NUR ---
CIWA/COWS ASSESSMENT CIWA score-11, COWS-11, patient presented with flushed face, difficulty sitting still, muscle spasms, runny nose, bilateral hand tremors, anxiety, agitation, sweats. patient was given her scheduled medications. Will cont to monitor.
[2018-03-31] MEDS ORDERED: BUPRENORPHINE HCL 2 MG TAB.SUBL SL SCH (09:00)
[2018-03-31] MEDS: BACLOFEN 20 MG TABLET PO PRN ×2 (09:29→21:05)
--- NOTE | 2018-03-31 09:29 | NUR ---
PRN BACLOFEN patient is c/o muscle spasms 5/10, PRN Baclofen 20mg PO administered as ordered. Will cont to monitor and reassess.
--- NOTE | 2018-03-31 10:29 | NUR ---
BACLOFEN REASSESSMENT Per patient Baclofen was effective muscle spasms lower to 2/10.
[2018-03-31 12:00] VITALS: BP 145/103
--- NOTE | 2018-03-31 12:00 | NUR ---
CIWA/COWS ASSESSMENT CIWA score-12, COWS-13, patient reported increased in anxiety, agitation, sweats, bilateral hand tremors, difficulty sitting still, muscle spasms, runny nose. Encourage patient to use non pharmacological intervention such as reading books, watching TV, patient verbalized understanding. Will cont to monitor.
[2018-03-31] MEDS: CLONIDINE HCL 0.1 MG TABLET PO PRN ×2 (12:16→21:05)
--- NOTE | 2018-03-31 12:16 | NUR ---
PRN CLONIDINE Patient's blood pressure noted 145/103, HR-111, patient reported anxiety, agitation, restless. PRN Clonidine 0.1mg PO given as ordered. Will cont to monitor and reassess.
--- NOTE | 2018-03-31 13:16 | NUR ---
CLONIDINE REASSESSMENT Patient's blood pressure noted 138/90, HR-92, per patient feeling less anxious and agitated/restless, Clonidine was effective.
[2018-03-31] MEDS ORDERED: ARIP5TAB10 PO (13:26)
[2018-03-31] MEDS ORDERED: BACL20TA PO (13:26)
[2018-03-31 16:00] VITALS: BP 108/73
--- NOTE | 2018-03-31 19:11 | NUR ---
END OF SHIFT NOTE Gave report to night nurse, 33 year old female admitted for Benzo/ Opioids withdrawal. Patient completed her Valium and Subutex taper tolerated well. Patient presented with sad facial expression, sweats, anxiety, agitation, restless, light headed, bilateral hand tremors, Body aches, muscle spasms, headache. Patient was given scheduled medications along with PRN Baclofen, Clonidine noted to be effective. Patient denies any SI/HI. Vital signs WNL. Encourage PO fluids as tolerated. Last CIWA score was- 9 and COWS-8. Patient set for discharge in AM. All safety measures in place, call light within reach. Patient endorse to night nurse in stable condition.
--- NOTE | 2018-03-31 19:30 | NUR ---
START OF SHIFT Pt is a 33 y/o female admitted for Benzo/ Opioids withdrawal; Pt has completed her Valium and Subutex taper and is scheduled for discharge tomorrow. Pt was given PRN Baclofen and Clonidine per day shift report and was effective. Pt received in room, A/A/O X 4.Pt appears worried about her DC tomorrow,she is dishevelled and unkempt,c/o generalized aches,pain and anxiety.PO fluids encouraged as tolerated. Last CIWA score was- 9 and COWS-8. All safety measures in place, call light within reach. Will continue to monitor.
[2018-03-31 20:00] VITALS: BP 115/75
--- NOTE | 2018-03-31 20:00 | NUR ---
CIWA/COWS ASSESSMENT CIWA score-8, COWS-8, pt is c/o anxiety, agitation, sweats, bilateral hand tremors, difficulty sitting still, muscle spasms. Will cont to monitor and medicate as needed.
[2018-03-31] MEDS: HYDROXYZINE PAMOATE 25 MG CAPSULE PO PRN (21:05)
--- NOTE | 2018-03-31 21:05 | NUR ---
PRN MEDS PRN Clonidine 0.1 mg po given for diaphoresis; Vistaril 50 mg po given for anxiety and Baclofen given for c/o muscle spasms.Will continue to monitor for effectiveness.
--- NOTE | 2018-03-31 22:05 | NUR ---
PRN F/U Pt is calm and resting in bed with eyes closed;breathing is even and non labored,no s/s of distress noted,will continue to monitor.
--- NOTE | 2018-04-01 06:41 | NUR ---
END OF SHIFT Pt is a 33 y/o female admitted for Benzo/ Opioids withdrawal;she has completed her taper medications and is scheduled for DC today. Pt was given PRN Baclofen , Clonidine, and Vistaril during the night and was effective.PO fluids encouraged as tolerated. Last CIWA score was 8 and COWS 8.Pt slept 8 hrs,fluid intake was 1000 ml,voided x 3 . All safety measures in place, call light within reach. Will continue to monitor
[2018-04-01 08:00] VITALS: BP 100/60
[2018-04-01] MEDS: VALACYCLOVIR HCL 500 MG TABLET PO SCH (08:14)
[2018-04-01] MEDS: GABAPENTIN 300 MG CAPSULE PO SCH (08:15)
[2018-04-01] MEDS: MULTIVITAMINS,THERAPEUTIC TABLET PO SCH (08:15)
[2018-04-01] MEDS: ARIPIPRAZOLE 5 MG TABLET PO SCH (08:15)
--- NOTE | 2018-04-01 08:15 | NUR ---
START OF SHIFT: Received Pt. A/O X 4. She presents with anxious mood and congruent affect.Detox taper completed. COWS 4 CIWA 4. She reports mild anxiety about discharging this morning but states she is motivated toward recovery. She states she will be attending IOP and 12 step meetings. Will continue to monitor and continue with discharge planning.
--- NOTE | 2018-04-01 10:40 | NUR ---
DISCHARGE; She is A/O X 4. She denies S/I and H/I. Educated Pt on discharge instructions and medications. She expressed verbal understanding of education. Belongings returned.She states she is motivated toward recovery. She reports she will be going to [facility] and 12 step meetings. [employer] escorted Pt to [facility] where she was transported by [email or web address] to [facility] at 1035.
== END 2018-04-01 10:35 | disposition home or self-care (01) | DRG 895 ==
LOC: SRC 22:45
PROVIDERS: ADMIT Family Medicine Addiction Medicine; ATTEND Family Medicine Addiction Medicine
PROC: HZ2ZZZZ Detoxification Services for Substance Abuse Treatment (ICD-10-PCS; principal; 2018-03-25)
PROC: HZ31ZZZ Individual Counseling for Substance Abuse Treatment, Behavioral (ICD-10-PCS; 2018-03-27)
PROC: HZ41ZZZ Group Counseling for Substance Abuse Treatment, Behavioral (ICD-10-PCS; 2018-03-28)
DX: F11.23 Opioid dependence with withdrawal (principal); F13.230 Sedative, hypnotic or anxiolytic dependence with withdrawal, uncomplicated; F41.1 Generalized anxiety disorder; Z91.14 Patient's other noncompliance with medication regimen; F17.210 Nicotine dependence, cigarettes, uncomplicated; Z81.1 Family history of alcohol abuse and dependence; Z81.3 Family history of other psychoactive substance abuse and dependence; Z86.59 Personal history of other mental and behavioral disorders; F31.9 Bipolar disorder, unspecified; F15.90 Other stimulant use, unspecified, uncomplicated; B00.9 Herpesviral infection, unspecified
CPT/HCPCS: 36415; 70030-TC; 80307; 80324; 80346; 83690; 83735; 84443; 84703; 85025; 86592; 86705; 86803; 87340; 87806; A4663; G0480; Q0162